=== PATIENT | male | born 1940 | race Caucasian/White ===

== ENCOUNTER 2020-06-15 13:17 | Outpatient (REF) | payer MEDICARE, SELFPAY ==
--- NOTE | 2020-06-15 13:25 | XR_ITS ---
EXAMINATION: XR LUMBOSACRAL SPINE CLINICAL INFORMATION: Fall. COMPARISON: None TECHNIQUE: Three views of the lumbosacral spine. FINDINGS: There is no fracture or subluxation. Vertebral body height and alignment is maintained. Disc spaces are maintained. Small endplate osteophytes with mild facet arthropathy. The sacroiliac joints are symmetric. The sacrum appears intact. The bowel gas pattern is unremarkable.. XR/XR lumbar spine 2-3V IMPRESSION: No fracture or malalignment. Mild degenerative changes in the spine.
== END 2020-06-15 13:18 | disposition home or self-care (01) ==
LOC: HO.HMGCX 13:17
PROVIDERS: PCP Internal Medicine; Visit Provider Internal Medicine
DX: R06.9 Unspecified abnormalities of breathing (principal); W19.XXXA Unspecified fall, initial encounter
CPT/HCPCS: 72100

== ENCOUNTER 2020-06-21 06:08 | Outpatient (REF) | payer MEDICARE, SELFPAY ==
[2020-06-21 07:52] LABS: Anion Gap 14 (12-20); Blood Urea Nitrogen 16 mg/dL (9-16); Calcium 8.8 mg/dL (8.4-10.2); Carbon Dioxide 23 mmol/L (22-29); Chloride 106 mmol/L (96-108); Cholesterol 153 mg/dL; Estimated Glomerular Filt Rate > 60; Glucose Fasting 93 mg/dL (60-99); HDL Cholesterol 57 mg/dL; LDL Cholesterol Calculated 73 mg/dl; Potassium 4.5 mmol/l (3.3-5.1); Sodium 138 mmol/L (135-145); Triglycerides 118 mg/dL
== END 2020-06-21 06:09 | disposition home or self-care (01) ==
LOC: HO.LAB 06:08
PROVIDERS: Visit Provider Internal Medicine
DX: I25.10 Atherosclerotic heart disease of native coronary artery without angina pectoris (principal); E78.9 Disorder of lipoprotein metabolism, unspecified; N40.0 Benign prostatic hyperplasia without lower urinary tract symptoms
CPT/HCPCS: 80048; 80061

== ENCOUNTER 2020-11-29 05:57 | Outpatient (REF) | payer MEDICARE, SELFPAY ==
[2020-11-29 08:42] LABS: Alanine Aminotransferase 17 U/L (0-40); Albumin Level 3.9 g/dL (3.5-5.0); Alkaline Phosphatase 46 U/L (39-117); Anion Gap 10 (12-20); Aspartate Amino Transferase 22 U/L (5-37); Bilirubin Total 0.9 mg/dL (0.0-1.0); Blood Urea Nitrogen 16 mg/dL (9-16); Calcium 9.1 mg/dL (8.4-10.2); Carbon Dioxide 27 mmol/L (22-29); Chloride 107 mmol/L (96-108); Cholesterol 152 mg/dL; Estimated Glomerular Filt Rate > 60; Glucose Fasting 85 mg/dL (60-99); HDL Cholesterol 55 mg/dL; LDL Cholesterol Calculated 75 mg/dl; Potassium 4.9 mmol/L (3.3-5.1); Sodium 139 mmol/L (135-145); Total Protein 6.4 g/dL (6.5-8.0); Triglycerides 110 mg/dL
== END 2020-11-29 05:58 | disposition home or self-care (01) ==
LOC: HO.LAB 05:57
PROVIDERS: PCP Internal Medicine; Visit Provider Internal Medicine
DX: E78.9 Disorder of lipoprotein metabolism, unspecified (principal); I25.10 Atherosclerotic heart disease of native coronary artery without angina pectoris
CPT/HCPCS: 36415; 80053; 80061

== ENCOUNTER → 2021-01-27 07:37 | Outpatient (REF) | payer MEDICARE, SELFPAY ==
--- NOTE | 2021-01-27 07:40 | CA_ITS ---
Transthoracic Echocardiogram Patient (Last, First, Middle): Jaime Lopez M Gender: Male Date of : 1940 Age: 80 Procedure Date: 01/27/2021 Procedure Type: Transthoracic Echocardiogram Location: OP Height: 182.88 cm Weight: 90.72 kg BSA: 2.13 m2 Heart Rate: bpm BP: 110 / 50 mmHg Coater Operator Insulation Board: OFELIA/MANJU Referring MD: Alfredo Collado MD Tankroom Worker: Ciaran Burris MD Symptoms: PVC PAC Study Quality: Fair ECG Rhythm: Sinus with extra beats Conclusions: - 1. Low normal LV systolic function with LVEF of 50-55% with impaired relaxation filling pattern 2. Mild aortic regurgitation 3. Normal RV systolic pressure 4. No pericardial effusion Findings Left Ventricle Normal left ventricular cavity size. There is normal left ventricular wall thickness. The left ventricular systolic function is low normal. The visually estimated ejection fraction is between 50-55%. Spectral Doppler is indicative of an impaired relaxation filling pattern. E/E prime ratio is between 8 and 15 consistent with indeterminate filling pressures. Right Ventricle Normal right ventricular cavity size and systolic function. Atria The left atrium is likely dilated. There is lipomatous hypertrophy of the interatrial septum. There is no evidence of interatrial shunt. The right atrium is normal in size. Aortic Valve There is mild calcification of the aortic valve. There is no aortic valve stenosis. There is mild aortic valve regurgitation. Mitral Valve There is mild anterior and posterior mitral leaflet thickening. There is trace mitral valve regurgitation. There is no mitral valve stenosis. Pulmonic Valve The pulmonic valve was not well visualized. Tricuspid Valve Likely normal tricuspid valve structure and function. There is mild tricuspid valve regurgitation. The right ventricular systolic pressure is normal. The right ventricular systolic pressure is 29 mmHg. Normal right atrial pressure. There is no evidence of pulmonary hypertension. Great Vessels All visible segments of the aorta are normal in size. The pulmonary artery was not well visualized. Venous The inferior vena cava is normal in size and collapses greater than 50% with inspiration. Pericardium/Pleural There is no evidence of pericardial effusion. Prior Study Comparison Changes noted compared to prior study dated: 10/10/2018. LV systolic function is marginally reduced Measurements 2D Linear Measurements IVSd: 0.99 0.6-0.9/0.6-1.0 cm LVIDd: 5.20 3.9-5.3/4.2-5.9 cm LVIDd Index: 2.44 2.4-3.2/2.2-3.1 cm/m2 LVIDs: 3.95 2.0-3.6 cm LVPWd: 1.03 0.7-1.1 cm Ao Root: 3.70 2.1-3.5 cm LA Diam: 3.80 2.7-3.8/3.0-4.0 cm LAIDs Index: 1.78 1.5-2.3 cm/m2 LV Mass: 245.84 67-162/88-224 g LV Mass Index: 115.42 43-95/49-115 g/m2 LVOT Diam: 2.30 3.0+(-)1.3 cm 2D Systolic Function EF 4C: 51.60 >55% EF 2C: 44.00 >55% Mitral Valve MV Pk E: 0.70 MV PK A: 0.51 MV Decel Time: 207.00 E/A: 1.40 E'Lateral: 8.05 E'Medial: 6.20 E/E' Med: 11.40 E/E' Lat: 8.70 PHT: 61.00 MVA PHT: 3.61 Decel [place]: 3.39 Aortic Valve AoV Pk Trent: 1.78 AoV Mn Trent: 1.18 AoV VTI: 0.47 AoV Pk Grad: 13.00 Aov Mn Grad: 6.00 RAISA Cont.VTI: 1.62 AI Pk Trent: 4.14 AI Lea: 1.03 LVOT LVOT Pk Trent: 0.70 LVOT Mn Trent: 0.46 LVOT VTI: 0.18 LVOT Pk Grad: 2.00 LVOT Mn Grad: 1.00 LVOT Diam: 2.30 LVOT Area: 4.15 Diastolic Function MV Pk E: 0.70 MV Pk A: 0.51 E/A: 1.40 E'Medial: 6.20 E/E' Med: 11.40 E' Laterial: 8.05 E/E' Lat: 8.70 Tricuspid Valve TR Pk Trent: 2.55 TR Pk Grad: 26.00 RA Press: 3.00 RVSP: 29.00 Great Vessels Aorta Ao Root-2D: 3.70 2.0-3.7 cm Ao Asc: 3.20 2.1-3.4 cm Ao Arch: 3.10 Pulmonary Valve PV Pk Trent: 0.87 Peak PV Grad: 3.00 Updated in Other Vendor System with Status of Final Ciaran Burris MD electronically signed on 01/28/2021 1:45:37 PM with status of Final
--- NOTE | 2021-01-27 07:41 | ECG_ITS ---
Hook-up date: 2021-01-27 08:46:00 Duration: 24:46:00 Test Indications: PVC PAC Medications: 21412 QRS complexes 45587 Ventricular ectopics which represent 14 % of total QRS comp. 883 Supraventricular ectopics which represent <1 % of total QRS comp. * Paced QRS complexs which represent % of total QRS comp. VENTRICULAR ECTOPY 15121 Isolated 9935 Bigeminal Cycles 274 Couplets 51 Runs 182 Beats in Runs 10 Beats LONGEST at 54 BPM at 08:57:18 2021-01-27 3 Beats FASTEST at 178 BPM at 13:54:39 2021-01-27 SUPRAVENTRICULAR ECTOPY 859 Isolated 12 Couplets 0 Runs 0 Beats in Runs * Beats LONGEST at * BPM at :: -- * Beats FASTEST at * BPM at :: -- HEART RATES 30 MIN at 23:28:56 2021-01-27 65 AVG 116 MAX at 13:39:49 2021-01-27 LONGEST RR 2.5120 secs at 02:18:51 2021-01-28 S-T LEVELS Channel 1 - 128 mm at 08:46:00 2021-01-27 - 128 mm at 08:46:00 2021-01-27 Channel 2 - 128 mm at 08:46:00 2021-01-27 - 128 mm at 08:46:00 2021-01-27 Channel 3 - 128 mm at 02:80:51 -- - 128 mm at 02:80:51 Basic rhythm Normal sinus rhythm Episode of marked sinus bradycardia with pause upto 2.5 seconds during sleep hours Frequent Premature ventricular complexes , 15% of total beats Fastest 3 beat at 178 bpm Occasional Premature atrial complexes Patient did not report any symptoms in the diary Referred By: Alfredo Collado Overread By: KARYN EDWARDS MD
== END ==
LOC: HO.CARD 07:37
PROVIDERS: Visit Provider Internal Medicine
DX: I49.3 Ventricular premature depolarization (principal); I49.1 Atrial premature depolarization
CPT/HCPCS: 93225; 93226; 93306

== ENCOUNTER → 2021-02-23 13:23 | Outpatient (BNVA) | payer MEDICARE, SELFPAY | PROVIDERS: PCP Internal Medicine; Referring Provider Internal Medicine; Visit Provider Internal Medicine | DX: I25.10 Atherosclerotic heart disease of native coronary artery without angina pectoris (principal); I49.3 Ventricular premature depolarization | CPT/HCPCS: 93005; 99212 ==

== ENCOUNTER 2021-04-19 11:33 | Outpatient (REF) | payer MEDICARE, SELFPAY ==
[2021-04-19 13:48] LABS: MANUAL DIFF FLAG NO
[2021-04-19 14:04] LABS: Basophils Absolute Auto 0.1 X10*3/uL (0.0-0.2); Basophils Percent Auto 0.8 % (0-2); Eosinophils Absolute Auto 0.4 X10*3/uL (0.0-0.4); Eosinophils Percent Auto 4.3 % (0-4); Hematocrit 46.2 % (42-52); Hemoglobin 15.3 g/dl (14.0-18.0); Imm Gran Abs Auto 0.06 X10*3/uL (0.00-0.03); Imm Gran Pct Auto 0.7 % (0.0-0.4); Lymphocytes Absolute Auto 2.1 X10*3/uL (1.2-4.9); Lymphocytes Percent Auto 25.4 % (20-40); Mean Corpuscular HGB Conc 33.1 g/dl (31.0-36.0); Mean Corpuscular Hemoglobin 31.5 pg (27.0-33.0); Mean Corpuscular Volume 95.1 fL (80-98); Mean Platelet Volume 12.9 fL (9.4-12.4); Monocytes Absolute Auto 0.6 X10*3/uL (0.1-1.2); Monocytes Percent Auto 7.1 % (2-11); Neutrophils Absolute Auto 5.1 X10*3/uL (2.0-8.3); Neutrophils Percent Auto 61.7 % (45-73); Platelet Count 165 X10*3/uL (160-400); Red Blood Count 4.86 X10*6/uL (4.60-5.80); White Blood Count 8.3 X10*3/uL (4.8-10.8)
[2021-04-19 14:19] LABS: Alanine Aminotransferase 24 U/L (0-40); Albumin Level 3.9 g/dL (3.5-5.0); Alkaline Phosphatase 49 U/L (39-117); Anion Gap 12 (12-20); Aspartate Amino Transferase 26 U/L (5-37); Bilirubin Total 0.9 mg/dL (0.0-1.0); Blood Urea Nitrogen 19 mg/dL (9-16); Calcium 9.4 mg/dL (8.4-10.2); Carbon Dioxide 25 mmol/L (22-29); Chloride 109 mmol/L (96-108); Estimated Glomerular Filt Rate > 60; Glucose Random 77 mg/dL (60-115); Potassium 4.5 mmol/L (3.3-5.1); Sodium 141 mmol/L (135-145); Total Protein 6.7 g/dL (6.5-8.0)
== END 2021-04-19 11:34 | disposition home or self-care (01) ==
LOC: HO.HMGCLDS 11:33
PROVIDERS: PCP Internal Medicine; Visit Provider Internal Medicine
DX: E78.9 Disorder of lipoprotein metabolism, unspecified (principal); I25.10 Atherosclerotic heart disease of native coronary artery without angina pectoris; I35.1 Nonrheumatic aortic (valve) insufficiency
CPT/HCPCS: 36415; 80053; 85025

== ENCOUNTER 2021-10-20 05:52 | Outpatient (REF) | payer MEDICARE, SELFPAY ==
[2021-10-20 09:34] LABS: Alanine Aminotransferase 15 U/L (0-40); Albumin Level 3.8 g/dL (3.5-5.0); Alkaline Phosphatase 51 U/L (39-117); Anion Gap 10 (12-20); Aspartate Amino Transferase 21 U/L (5-37); Blood Urea Nitrogen 16 mg/dL (9-16); Calcium 9.2 mg/dL (8.4-10.2); Carbon Dioxide 29 mmol/L (22-29); Chloride 106 mmol/L (96-108); Cholesterol 149 mg/dL; Estimated Glomerular Filt Rate > 60; Glucose Fasting 93 mg/dL (60-99); HDL Cholesterol 52 mg/dL; LDL Cholesterol Calculated 77 mg/dl; Potassium 4.9 mmol/L (3.3-5.1); Sodium 140 mmol/L (135-145); Total Protein 6.5 g/dL (6.5-8.0); Triglycerides 102 mg/dL
== END 2021-10-20 05:53 | disposition home or self-care (01) ==
LOC: HO.LAB 05:52
PROVIDERS: PCP Internal Medicine; Visit Provider Internal Medicine
DX: I25.10 Atherosclerotic heart disease of native coronary artery without angina pectoris (principal); I35.1 Nonrheumatic aortic (valve) insufficiency; N40.0 Benign prostatic hyperplasia without lower urinary tract symptoms; E78.9 Disorder of lipoprotein metabolism, unspecified
CPT/HCPCS: 36415; 80053; 80061

== ENCOUNTER → 2022-02-13 07:30 | Outpatient (REF) | payer MEDICARE, SELFPAY ==
--- NOTE | 2022-02-13 07:34 | HM_ITS ---
Conclusion: 1. Patient was monitored for total period of 3 days 2. Baseline was normal sinus rhythm with average heart of 63 beats per minute 3. No significant pauses noted but lowest heart rate of 31 beats per minute during sleep hours 4. Total of 1967 PVCs accounting for 0.72% of total beats accounting for occasional PVCs 5. Total of 628 PACs accounting for 0.23% of total burden account for occasional PACs 6. No patient reported events MTDD
--- NOTE | 2022-02-13 07:34 | CA_ITS ---
Transthoracic Echocardiogram Patient (Last, First, Middle): Jaime Lopez M Gender: Male Date of : 1940 Age: 81 Procedure Date: 02/13/2022 Procedure Type: Transthoracic Echocardiogram Location: OP Height: 182.88 cm Weight: 92.99 kg BSA: 2.15 m2 Heart Rate: bpm BP: 116 / 70 mmHg Mammal Control Agent: TO Referring MD: Alfredo Collado MD Electrician Radio: Ciaran Burris MD Symptoms: I49.3 - Ventricular premature depolarization Study Quality: Fair ECG Rhythm: Sinus Conclusions: - 1. Normal LV systolic function with impaired relaxation filling pattern next 2. Mild aortic regurgitation 3. Mildly dilated left atrium 4. Normal RV systolic pressure 5. No pericardial effusion Findings Left Ventricle Normal left ventricular size, thickness, and systolic function. The visually estimated ejection fraction is between 55-60%. Spectral Doppler is indicative of an impaired relaxation filling pattern. E/E prime ratio is between 8 and 15 consistent with indeterminate filling pressures. Right Ventricle Normal right ventricular cavity size and systolic function. Atria The left atrium is mildly dilated. There is no evidence of interatrial shunt. The right atrium is normal in size. Aortic Valve There is moderate calcification of the aortic valve. There is no aortic valve stenosis. There is mild aortic valve regurgitation. Mitral Valve There is mild anterior and posterior mitral leaflet thickening. There is trace mitral valve regurgitation. There is no mitral valve stenosis. Pulmonic Valve The pulmonic valve was not well visualized. Tricuspid Valve Likely normal tricuspid valve structure and function. There is mild tricuspid valve regurgitation. The right ventricular systolic pressure is normal. The right ventricular systolic pressure is 31 mmHg. Normal right atrial pressure. There is no evidence of pulmonary hypertension. Great Vessels All visible segments of the aorta are normal in size. The pulmonary artery was not well visualized. Venous The inferior vena cava is normal in size and collapses greater than 50% with inspiration. Pericardium/Pleural There is no evidence of pericardial effusion. Prior Study Comparison No significant change compared to prior study dated: 01/27/2021. Measurements 2D Linear Measurements IVSd: 1.23 0.6-0.9/0.6-1.0 cm LVIDd: 4.84 3.9-5.3/4.2-5.9 cm LVIDd Index: 2.25 2.4-3.2/2.2-3.1 cm/m2 LVIDs: 3.11 2.0-3.6 cm LVPWd: 1.20 0.7-1.1 cm LA Diam: 4.00 2.7-3.8/3.0-4.0 cm LAIDs Index: 1.86 1.5-2.3 cm/m2 LV Mass: 281.70 67-162/88-224 g LV Mass Index: 131.02 43-95/49-115 g/m2 LVOT Diam: 2.30 3.0+(-)1.3 cm 2D Systolic Function EF 4C: 58.90 >55% EF 2C: 53.40 >55% EF BiP: 56.00 >55% Mitral Valve MV Pk E: 0.42 MV PK A: 0.69 MV Decel Time: 253.00 E/A: 0.60 E'Lateral: 4.35 E'Medial: 5.66 E/E' Med: 7.50 E/E' Lat: 9.70 PHT: 74.00 MVA PHT: 2.97 Decel [place]: 1.68 Aortic Valve AoV Pk Trent: 1.65 AoV Mn Trent: 1.07 AoV VTI: 0.34 AoV Pk Grad: 11.00 Aov Mn Grad: 5.00 RAISA Cont.VTI: 2.72 AI Pk Trent: 4.32 AI [place]: 1.66 LVOT LVOT Pk Trent: 0.78 LVOT Mn Trent: 0.51 LVOT VTI: 0.23 LVOT Pk Grad: 2.00 LVOT Mn Grad: 1.00 LVOT Diam: 2.30 LVOT Area: 4.15 Diastolic Function MV Pk E: 0.42 MV Pk A: 0.69 E/A: 0.60 E'Medial: 5.66 E/E' Med: 7.50 E' Laterial: 4.35 E/E' Lat: 9.70 Right Ventricle TAPSE (mm): 28.70 TVS' Trent: 17.50 Tricuspid Valve TR Pk Trent: 2.65 TR Pk Grad: 28.00 RA Press: 3.00 RVSP: 31.00 Great Vessels Aorta Sinus of Valsalva: 4.41 2.0-3.[address] [place]: 3.27 1.7-3.4 cm Ao Asc: 3.50 2.1-3.4 cm Updated in Other Vendor System with Status of Final Ciaran Burris MD electronically signed on 02/13/2022 12:26:02 PM with status of Final
== END ==
LOC: HO.CARD 07:30
PROVIDERS: PCP Internal Medicine; Visit Provider Internal Medicine
DX: I49.3 Ventricular premature depolarization (principal)
CPT/HCPCS: 93242; 93306

== ENCOUNTER → 2022-02-27 12:16 | Outpatient (BNVA) | payer MEDICARE, SELFPAY | PROVIDERS: PCP Internal Medicine; Referring Provider Internal Medicine; Visit Provider Internal Medicine | DX: I25.10 Atherosclerotic heart disease of native coronary artery without angina pectoris (principal); I49.3 Ventricular premature depolarization; I35.1 Nonrheumatic aortic (valve) insufficiency; Z79.82 Long term (current) use of aspirin; Z79.899 Other long term (current) drug therapy; I25.2 Old myocardial infarction | CPT/HCPCS: 93005; 99212 ==

== ENCOUNTER 2022-04-20 05:51 | Outpatient (REF) | payer MEDICARE, SELFPAY ==
[2022-04-20 08:19] LABS: Alanine Aminotransferase 23 U/L (0-40); Albumin Level 3.9 g/dL (3.5-5.0); Alkaline Phosphatase 52 U/L (39-117); Anion Gap 15 (12-20); Aspartate Amino Transferase 26 U/L (5-37); Blood Urea Nitrogen 15 mg/dL (9-16); Carbon Dioxide 23 mmol/L (22-29); Chloride 107 mmol/L (96-108); Cholesterol 153 mg/dL; Estimated Glomerular Filt Rate > 60; Glucose Fasting 90 mg/dL (60-99); HDL Cholesterol 54 mg/dL; LDL Cholesterol Calculated 79 mg/dl; Potassium 4.5 mmol/L (3.3-5.1); Sodium 140 mmol/L (135-145); Total Protein 6.6 g/dL (6.5-8.0); Triglycerides 103 mg/dL
== END 2022-04-20 05:52 | disposition home or self-care (01) ==
LOC: HO.LAB 05:51
PROVIDERS: PCP Internal Medicine; Visit Provider Internal Medicine
DX: I25.10 Atherosclerotic heart disease of native coronary artery without angina pectoris (principal); I35.1 Nonrheumatic aortic (valve) insufficiency; I49.3 Ventricular premature depolarization; E78.9 Disorder of lipoprotein metabolism, unspecified
CPT/HCPCS: 36415; 80053; 80061

== ENCOUNTER 2022-10-19 06:49 | Outpatient (REF) | payer MEDICARE, SELFPAY ==
[2022-10-19 06:59] LABS: MANUAL DIFF FLAG NO
[2022-10-19 07:49] LABS: Basophils Absolute Auto 0.1 X10*3/uL (0.0-0.2); Eosinophils Absolute Auto 0.2 X10*3/uL (0.0-0.4); Eosinophils Percent Auto 3.3 % (0-4); Hematocrit 47.2 % (42.0-52.0); Hemoglobin 15.5 g/dl (14.0-18.0); Imm Gran Abs Auto 0.04 X10*3/uL (0.00-0.03); Imm Gran Pct Auto 0.5 % (0.0-0.4); Lymphocytes Absolute Auto 1.9 X10*3/uL (1.2-4.9); Lymphocytes Percent Auto 25.2 % (20-40); Mean Corpuscular HGB Conc 32.8 g/dl (31.0-36.0); Mean Corpuscular Hemoglobin 30.8 pg (27.0-33.0); Mean Corpuscular Volume 93.8 fL (80.0-98.0); Monocytes Absolute Auto 0.6 X10*3/uL (0.1-1.2); Monocytes Percent Auto 7.5 % (2-11); Neutrophils Absolute Auto 4.6 x10*3/uL (2.0-8.3); Neutrophils Percent Auto 62.5 % (45-73); Platelet Count 163 X10*3/uL (160-400); Red Blood Count 5.03 X10*6/uL (4.60-5.80); White Blood Count 7.3 X10*3/uL (4.8-10.8)
[2022-10-19 08:24] LABS: Alanine Aminotransferase 17 U/L (0-40); Albumin Level 3.7 g/dL (3.5-5.0); Alkaline Phosphatase 51 U/L (39-117); Anion Gap 14 (12-20); Aspartate Amino Transferase 24 U/L (5-37); Blood Urea Nitrogen 18 mg/dL (9-16); Calcium 9.1 mg/dL (8.4-10.2); Carbon Dioxide 23 mmol/L (22-29); Chloride 110 mmol/L (96-108); Cholesterol 154 mg/dL; Estimated Glomerular Filt Rate > 60; Glucose Fasting 91 mg/dL (60-99); HDL Cholesterol 54 mg/dL; LDL Cholesterol Calculated 80 mg/dl; Potassium 4.8 mmol/L (3.3-5.1); Sodium 142 mmol/L (135-145); Total Protein 6.2 g/dL (6.5-8.0); Triglycerides 102 mg/dL
== END 2022-10-19 06:50 | disposition home or self-care (01) ==
LOC: HO.LAB 06:49
PROVIDERS: PCP Internal Medicine; Visit Provider Internal Medicine
DX: I25.10 Atherosclerotic heart disease of native coronary artery without angina pectoris (principal); I35.1 Nonrheumatic aortic (valve) insufficiency; E78.9 Disorder of lipoprotein metabolism, unspecified
CPT/HCPCS: 36415; 80053; 80061; 85025

== ENCOUNTER 2023-03-21 12:26 | Outpatient (AMB) | payer MEDICARE, SELFPAY ==
--- NOTE | 2023-03-21 12:32 | MHC.OFFVIS ---
Intake Vital Signs 03/21/23 12:33 Height 6 ft Weight 206 lb 5.643 oz BMI 28.0 BP 112/58 L Blood Pressure Location Lt brachial Position Sitting Pulse 43 L Intake Visit Reasons: 1 yr f/up Intake Note: 1 year follow up w/ EKG Loom Changeover Operator Required: No Accompanied by: Self / Same As Patient Allergies metoprolol Allergy (Unknown, Uncoded 03/21/23 12:35) on high dose feels tired Medication List - Last Reconciled 03/21/23 by Alfredo Collado MD aspirin 81 mg PO DAILY metoprolol succinate ER 25 mg PO BEDTIME rosuvastatin 40 mg PO DAILY HPI HPI Comments History of Present Illness Details Jaime returns for follow-up regarding coronary artery disease. To recall, he has a history of coronary intervention to proximal ramus in [address] myocardial infarction. Overall, he is doing good. No specific complaints like angina or shortness of breath. He has exercise regularly. Also swims for half an hour or so without any issues. [facility] Medical History Atherosclerotic cardiovascular disease Benign prostatic hyperplasia Coronary artery disease Excessive cerumen in both ear canals Fall Lipid disorder Moderate aortic valve regurgitation PVC (premature ventricular contraction) Swelling Surgical History History of hemorrhoidectomy History of surgery Family History Father Leukemia Depression Mother Dementia Maternal Grandfather No problems noted. Maternal Grandmother No problems noted. Paternal Grandfather No problems noted. Paternal Grandmother No problems noted. Brother No problems noted. Son No problems noted. Son No problems noted. Son No problems noted. Daughter No problems noted. Other Mental health disorder Social History Housing: House Alcohol intake: never Patient Tobacco Use Status: Never used Tobacco e-Cigarette/Vaping Use: Never Used service: Yes Current occupational status: retired Cognitive needs: No Hearing needs: No Vision needs: Yes Review of Systems Const Denies weakness ENT Denies dizziness Card Denies chest pain, Denies chest pain with activity, Denies syncope, Denies rapid heart rate, Denies pedal edema, Denies edema, Denies leg edema, Denies lightheadedness, Denies palpitations, Denies dyspnea, Denies dyspnea on exertion and Denies orthopnea Resp Denies cough, Denies dyspnea and Denies dyspnea on exertion GI Denies hematochezia and Denies change in stool character Musc Denies abnormal gait, Denies muscle cramps, Denies muscle weakness, Denies numbness, Denies radiating pain into limb and Denies tingling Neuro Denies abnormal gait, Denies dizziness, Denies syncope, Denies numbness, Denies tingling and Denies weakness Endo Denies palpitations Physical Exam Vital Signs: Last Vital Signs Pulse 43 L 03/21/23 12:33 BP 112/58 L 03/21/23 12:33 BMI result Body Mass Index 28.0 Const General: comfortable and no acute distress Orientation/consciousness: patient oriented x3 HEENT Other: Unremarkable Head: Yes normal to inspection Neck Neck: Yes normal visual inspection Chest Chest palpation & inspection: normal inspection of the chest Resp Auscultation: clear to auscultation bilaterally Cardio Palpation: normal PMI Heart sounds: S1 normal heart sound present, S2 normal heart sound present, no gallops, no murmurs and no rubs GI Palpation (GI): Soft to palpation Back/Spine/Pelvis Other: unremarkable Skin General skin exam: no rashes or lesions noted Neuro General: patient oriented x3 Extrem General: Yes normal to inspection Psych Mental Status: mental status grossly normal Office Procedures EKG Details: EKG with sinus bradycardia, 43/Min; sinus arrhythmia. Nonspecific ST-T changes. 47141-[id number], Complete Assessment & Plan Assessment & Plan (1) Atherosclerotic cardiovascular disease: Code(s): I25.10 - Atherosclerotic heart disease of [place] coronary artery without angina pectoris Plan: Remote coronary intervention, but no symptoms at this time. As he is fairly active pursuing exercising every day, we will reassess ischemia burden with perfusion imaging. Will also look for chronotropic competence due to baseline bradycardia. (2) PVC (premature ventricular contraction): Code(s): I49.3 - Ventricular premature depolarization Plan: In the last Holter, minimal burden. In the previous study, as much as 15% burden. He remains on a small dose of beta-blockers. (3) Nonrheumatic aortic valve regurgitation: Code(s): I35.1 - Nonrheumatic aortic (valve) insufficiency Plan: Echocardiogram with mild aortic regurgitation. Not hemodynamically significant. No specific implications at this time. Orders: Orders CA stress test Today I25.10 - Atherosclerotic heart disease of [place] coronary artery without angina pectoris NM cardiolite stress test Today I25.10 - Atherosclerotic heart disease of [place] coronary artery without angina pectoris, R07.2 - Precordial pain Coding Level of Care Code Est Pt Level 3 (37313) Diagnoses Atherosclerotic cardiovascular disease I25.10 PVC (premature ventricular contraction) I49.3 Nonrheumatic aortic valve regurgitation I35.1 CPT Codes EKG - CPT: 59472-[id number], Complete ([id number])
[2023-03-21 12:33] VITALS: BP 112/58; PULSE 43; BMI 28.0
== END 2023-03-21 12:48 | disposition home or self-care (01) ==
PROVIDERS: PCP Internal Medicine; Referring Provider Internal Medicine; Visit Provider Internal Medicine
DX: I25.10 Atherosclerotic heart disease of native coronary artery without angina pectoris (principal); I49.3 Ventricular premature depolarization; I35.1 Nonrheumatic aortic (valve) insufficiency
CPT/HCPCS: 93010; 99213

== ENCOUNTER → 2023-03-21 12:26 | Outpatient (BNVA) | payer MEDICARE, SELFPAY | PROVIDERS: PCP Internal Medicine; Referring Provider Internal Medicine; Visit Provider Internal Medicine | DX: I25.10 Atherosclerotic heart disease of native coronary artery without angina pectoris (principal); I49.3 Ventricular premature depolarization; I35.1 Nonrheumatic aortic (valve) insufficiency | CPT/HCPCS: 93005; 99212 ==

== ENCOUNTER → 2023-04-16 08:07 | Outpatient (REF) | payer MEDICARE, SELFPAY ==
--- NOTE | ~2023-04-16 | NM_ITS ---
EXERCISE MYOCARDIAL PERFUSION STUDY INDICATION: Coronary disease, assess for ischemia TECHNIQUE: The patient was brought in for an exercise perfusion study on 04/16/2023. Patient performed exercise as per Paul protocol and was injected 30 mCi of sestamibi once target heart rate was achieved. Images were obtained using the SPECT gamma camera interlaced with the gating device. Images were obtained in supine position. Resting perfusion study was performed on 04/18/2023. Patient was administered 30 mCi of sestamibi intravenously at rest. Images were then obtained in supine position. Images were processed with the software and compared side to side in short axis, horizontal long axis and vertical long axis views. Total DLP 95mGy-cm. FINDINGS: Raw images were reviewed. The stress perfusion study showed no significant perfusion defects. Both uncorrected as well as CT attenuation corrected images were reviewed. The gated study shows normal LV systolic function with calculated LVEF of 60%. LV cavity is normal in size. The gated study shows normal wall thickening and contraction of segments. Resting study shows no significant perfusion defects. Gating at rest reveals normal wall motion with ejection fraction at 49%. The findings are consistent with no clear reversible or fixed perfusion defects. AL/AL cardiolite stress test IMPRESSION: 1. Myocardial perfusion imaging study shows normal myocardial perfusion. No clear evidence of any ischemia or infarction. 2. Gated LVEF is 60% during stress and 49% during rest. Correlate with echocardiogram. 3. Transient ischemic dilatation not present. EKG component of the test reported separately.
--- NOTE | 2023-04-16 08:09 | CA_ITS ---
Acquisition Time: 2023-04-16 08:42:37 Total Exercise Time: 00:05:59 Test Indications: CAD, PVC'S Medications: SEE H Protocol: BEN Max HR: 125 BPM 89% of Pred: 139 BPM Max BP: 154/082 mmHG Max Work Load: 7.0 METS Exercise stress test exercise achieving 88% MPHR, without anginal symptoms, with frequent isolated PVCs and one ventriuclar cuplet, with normotensive response to exercise, with downsloping V6 Nuclear images pending. Test reviewed with Dr. Ba. Referred By: Ibrahima Collado Overread By: IBRAHIMA COLLADO
== END ==
LOC: HO.CARD 08:07
PROVIDERS: PCP Internal Medicine; Visit Provider Internal Medicine
DX: R07.2 Precordial pain (principal); I25.10 Atherosclerotic heart disease of native coronary artery without angina pectoris
CPT/HCPCS: 78452; 93017; A9500

== ENCOUNTER → 2023-04-16 08:09 | Outpatient (BNV) | payer MEDICARE, SELFPAY | PROVIDERS: PCP Internal Medicine; Visit Provider Internal Medicine | DX: I25.10 Atherosclerotic heart disease of native coronary artery without angina pectoris (principal) | CPT/HCPCS: 78452; 93016; 93018 ==

== ENCOUNTER 2023-07-17 08:16 | Outpatient (AMB) | payer MEDICARE, SELFPAY ==
[2023-07-17 08:35] VITALS: BP 120/68; PULSE 40; O2SAT 97; BMI 28.4
--- NOTE | 2023-07-17 08:35 | MHC.PC.OV ---
Vital Signs 07/17/23 08:35 Height 6 ft Weight 209 lb 2 oz BMI 28.4 BP 120/68 Blood Pressure Location Rt brachial Position Sitting Pulse 40 L Pulse Source Pulse Oximeter Pulse Oximetry (%) 97 Oxygen Delivery Method Room Air Intake Visit Reasons: 9m follow up, lipids Allergies metoprolol Allergy (Unknown, Uncoded 07/17/23 08:37) on high dose feels tired Medication List - Last Reviewed 07/17/23 by Eliza Murray CMA aspirin 81 mg PO DAILY metoprolol succinate ER 25 mg PO BEDTIME rosuvastatin 40 mg PO DAILY Tobacco use date assessed: 07/17/23 Fall risk assessment: No Falls in past year Last assessed Fall Risk: 07/17/23 Dental Screening Dental Screen Date: 07/17/23 Did you have a dental visit in the last 12 months?: Yes Did you have a dental problem in the last 6 months where you did not have access to dental care?: No Was dental information given to patient?: Patient has dentist HPI 9m follow up, lipids HPI Details Patient is 83-year-old male came in today for his regular follow-up appointment Patient have coronary artery disease, he is seeing Dr. Collado [facility] all his medications are through them Patient would still like to come in here every 4 month because he gets wax buildup I see that he has not had labs done since September of this year, I have placed a new set of order for him to be done fasting Both ears were irrigated today with good result Patient is to follow-up in 4 months for ear irrigation [facility] Medical History PVC (premature ventricular contraction) Atherosclerotic cardiovascular disease Swelling Fall Excessive cerumen in both ear canals Benign prostatic hyperplasia Lipid disorder Moderate aortic valve regurgitation Coronary artery disease Surgical History History of surgery History of hemorrhoidectomy Family History Father Leukemia Depression Mother Dementia Maternal Grandfather No problems noted. Maternal Grandmother No problems noted. Paternal Grandfather No problems noted. Paternal Grandmother No problems noted. Brother No problems noted. Son No problems noted. Son No problems noted. Son No problems noted. Daughter No problems noted. Other Mental health disorder Social History Housing: House Alcohol intake: never Patient Tobacco Use Status: Never used Tobacco e-Cigarette/Vaping Use: Never Used service: Yes Current occupational status: retired Cognitive needs: No Hearing needs: No Vision needs: Yes Questionnaire PHQ-9 Over the last 2 weeks, how often have you been bothered by any of the following problems? 1. Little interest or pleasure in doing things: not at all 2. Feeling down, depressed, or hopeless: not at all 3. Trouble falling or staying asleep, or sleeping too much: not at all 4. Feeling tired or having little energy: not at all 5. Poor appetite or overeating: not at all 6. Feeling bad about yourself - or that you are a failure or have let yourself or your family down: not at all 7. Trouble concentrating on things, such as reading the newspaper or watching television: not at all 8. Moving or speaking so slowly that other people could have noticed. Or the opposite - being so fidgety or restless that you have been moving around a lot more than usual: not at all 9. Thoughts that you would be better off or of hurting yourself in some way: not at all Total score: 0 Depression Screening Interpretation: Negative Depression Screening Done: Yes 47714 - PHQ-9 Billing: Yes Source: Developed by Drs. Jared Brown, Genia Gibson, Spenser Hernandez and colleagues, with an educational genny from [employer]. Thrive Questionnaire Date Thrive assessed: 10/18/21 COSME-7 AMB Questionnaire COSME-7 Date COSME - 7 assessed: 07/17/23 Feeling nervous, anxious, or on edge: 0 = Not at all Not being able to stop or control worryin = Not at all Worrying too much about different things: 0 = Not at all Trouble relaxin = Not at all Being so restless that it is hard to sit still: 0 = Not at all Becoming easily annoyed or irritable: 0 = Not at all Feeling afraid as if something awful might happen: 0 = Not at all Total COSME-7 score (0-4 normal; 5-9 mild; 10-14 moderate; 15-21 severe): 0 Source: Developed by Drs. Jared Brown, Genia Gibson, Spenser Hernandez and colleagues, with an educational genny from [employer]. COSME-7 Assessment Billing COSME-7 Assessment Tool: COSME-7 Assessment 15116 Review of Systems Const Denies chills and Denies fever(s) ENT Denies epistaxis and Denies nasal discharge Card Denies chest pain Resp Denies chest congestion, Denies cough and Denies hemoptysis GI Denies diarrhea and Denies nausea Skin/Breast Denies rash Neuro Reports no additional complaints Psych Reports no additional complaints Endo Reports no additional complaints Physical exam (Primary Care) Vital Signs: Last Vital Signs Pulse 40 L 07/17/23 08:35 BP 120/68 07/17/23 08:35 Pulse Ox 97 07/17/23 08:35 Oxygen Delivery Method Room Air 07/17/23 08:35 BMI result Body Mass Index 28.4 Tobacco/Smoking Status: Tobacco use Status Tobacco use date assessed 07/17/23 07/17/23 08:42 Patient Tobacco Use Status Never used Tobacco 07/17/23 08:35 e-Cigarette/Vaping Use Never Used 07/17/23 08:35 PHQ-9: PHQ-9 Score PHQ-9: Total score 0 07/17/23 10:56 Depression Screening Interpretation: Negative Thrive Assessment: Date of Thrive Assessment Date Thrive assessed 10/18/21 07/17/23 08:35 Const General: cooperative, comfortable and no acute distress Orientation/consciousness: patient oriented x3 HENKS Head: Yes normocephalic Eyes General: appearance normal, both eyes and all related structures Neck Neck: Yes supple Resp Effort & Inspection: normal respiratory effort, no cough and no stridor Cardio Rhythm: regular rhythm Heart sounds: S1 normal heart sound present and S2 normal heart sound present Skin General skin exam: turgor normal Neuro General: patient oriented x3, tone normal and moves all extremities Extrem Right lower extremity: no edema Left lower extremity: no edema Office Procedures Cerumen Removal From which ear canal was the cerumen removed: bilateral Removal: irrigation Notes: patient tolerated procedure well, no complications and ear canal clear [id number] Irrigation/Lavage Assessment and Plan Assessment & Plan (1) Coronary artery disease: Code(s): I25.10 - Atherosclerotic heart disease of [place] coronary artery without angina pectoris Qualifiers: Coronary Disease-Associated Artery/Lesion type: [place] artery [place] vs. transplanted heart: [place] heart Associated angina: without angina Qualified Code(s): I25.10 - Atherosclerotic heart disease of [place] coronary artery without angina pectoris (2) Moderate aortic valve regurgitation: Code(s): I35.1 - Nonrheumatic aortic (valve) insufficiency (3) Lipid disorder: Code(s): E78.9 - Disorder of lipoprotein metabolism, unspecified (4) Excessive cerumen in both ear canals: Code(s): H61.23 - Impacted cerumen, bilateral Plan Patient is 83-year-old male came in today for his regular follow-up appointment Patient have coronary artery disease, he is seeing Dr. Collado [facility] all his medications are through them Patient would still like to come in here every 4 month because he gets wax buildup I see that he has not had labs done since September of this year, I have placed a new set of order for him to be done fasting Both ears were irrigated today with good result Patient is to follow-up in 4 months for ear irrigation Orders: Orders Complete Blood Count Auto Diff Today E78.9 - Disorder of lipoprotein metabolism, unspecified, I25.10 - Atherosclerotic heart disease of [place] coronary artery without angina pectoris, I35.1 - Nonrheumatic aortic (valve) insufficiency Comprehensive [place]. Panel Fast Today E78.9 - Disorder of lipoprotein metabolism, unspecified, I25.10 - Atherosclerotic heart disease of [place] coronary artery without angina pectoris, I35.1 - Nonrheumatic aortic (valve) insufficiency Lipid Panel Today E78.9 - Disorder of lipoprotein metabolism, unspecified, I25.10 - Atherosclerotic heart disease of [place] coronary artery without angina pectoris, I35.1 - Nonrheumatic aortic (valve) insufficiency Coding Level of Care Code Est Pt Level 3 (66119) Diagnoses Coronary artery disease involving [place] coronary artery of [place] heart without angina pectoris I25.10 Coronary Disease-Associated Artery/Lesion type: [place] artery [place] vs. transplanted heart: [place] heart Associated angina: without angina Moderate aortic valve regurgitation I35.1 Lipid disorder E78.9 Excessive cerumen in both ear canals H61.23 CPT Codes Office Procedure - CPT: 24267-Shc Irrigation/Lavage ([id number]) Additional Codes COSME-7 Assessment Billing - COSME-7 Assessment Tool: COSME-7 Assessment 72121 ([id number])
== END 2023-07-17 10:29 | disposition home or self-care (01) ==
PROVIDERS: Visit Provider Internal Medicine
DX: I25.10 Atherosclerotic heart disease of native coronary artery without angina pectoris (principal); I35.1 Nonrheumatic aortic (valve) insufficiency; E78.9 Disorder of lipoprotein metabolism, unspecified; H61.23 Impacted cerumen, bilateral
CPT/HCPCS: 69209; 99213

== ENCOUNTER 2023-11-12 05:59 | Outpatient (REF) | payer MEDICARE, SELFPAY ==
[2023-11-12 06:10] LABS: MANUAL DIFF FLAG NO
[2023-11-12 07:32] LABS: Basophils Absolute Auto 0.1 X10*3/uL (0.0-0.2); Basophils Percent Auto 0.7 % (0-2); Eosinophils Absolute Auto 0.2 X10*3/uL (0.0-0.4); Eosinophils Percent Auto 2.6 % (0-4); Hematocrit 45.1 % (42.0-52.0); Hemoglobin 15.1 g/dl (14.0-18.0); Imm Gran Abs Auto 0.04 X10*3/uL (0.00-0.03); Imm Gran Pct Auto 0.6 % (0.0-0.4); Lymphocytes Absolute Auto 1.7 X10*3/uL (1.2-4.9); Lymphocytes Percent Auto 24.6 % (20-40); Mean Corpuscular HGB Conc 33.5 g/dl (31.0-36.0); Mean Corpuscular Hemoglobin 31.4 pg (27.0-33.0); Mean Corpuscular Volume 93.8 fL (80.0-98.0); Mean Platelet Volume 11.9 fL (9.4-12.4); Monocytes Absolute Auto 0.4 X10*3/uL (0.1-1.2); Monocytes Percent Auto 5.9 % (2-11); Neutrophils Absolute Auto 4.5 x10*3/uL (2.0-8.3); Neutrophils Percent Auto 65.6 % (45-73); Platelet Count 167 X10*3/uL (160-400); Red Blood Count 4.81 X10*6/uL (4.60-5.80); White Blood Count 6.8 X10*3/uL (4.8-10.8)
[2023-11-12 07:48] LABS: Alanine Aminotransferase 21 U/L (0-40); Albumin Level 3.8 g/dL (3.5-5.0); Alkaline Phosphatase 46 U/L (39-117); Anion Gap 11 (12-20); Aspartate Amino Transferase 25 U/L (5-37); Bilirubin Total 0.9 mg/dL (0.0-1.0); Blood Urea Nitrogen 21 mg/dL (9-16); Calcium 9.3 mg/dL (8.4-10.2); Carbon Dioxide 24 mmol/L (22-29); Chloride 110 mmol/L (96-108); Cholesterol 148 mg/dL (<200); Estimated Glomerular Filt Rate > 60; Glucose Fasting 86 mg/dL (60-99); HDL Cholesterol 56 mg/dL (>40); LDL Cholesterol Calculated 77 mg/dL (<100); Potassium 4.3 mmol/L (3.3-5.1); Sodium 141 mmol/L (135-145); Total Protein 6.6 g/dL (6.5-8.0); Triglycerides 78 mg/dL (<150)
== END 2023-11-12 06:00 | disposition home or self-care (01) ==
LOC: HO.LAB 05:59
PROVIDERS: PCP Internal Medicine; Visit Provider Internal Medicine
DX: I25.10 Atherosclerotic heart disease of native coronary artery without angina pectoris (principal); I35.1 Nonrheumatic aortic (valve) insufficiency; E78.9 Disorder of lipoprotein metabolism, unspecified
CPT/HCPCS: 36415; 80053; 80061; 85025

== ENCOUNTER 2023-11-20 08:37 | Outpatient (AMB) | payer MEDICARE, SELFPAY ==
[2023-11-20 08:41] VITALS: BP 112/60; PULSE 65; O2SAT 98; BMI 28.2
--- NOTE | 2023-11-20 08:41 | MHC.PC.OV ---
Vital Signs 11/20/23 08:41 Height 6 ft Weight 208 lb 4 oz BMI 28.2 BP 112/60 Blood Pressure Location Rt brachial Position Sitting Pulse 65 Pulse Source Pulse Oximeter Pulse Oximetry (%) 98 Oxygen Delivery Method Room Air Intake Visit Reasons: 4 month follow up Allergies metoprolol Allergy (Unknown, Uncoded 07/17/23 08:37) on high dose feels tired Medication List - Last Reconciled 11/20/23 by Jb Vicente MD aspirin 81 mg PO DAILY metoprolol succinate ER 25 mg PO BEDTIME rosuvastatin 40 mg PO DAILY Tobacco use date assessed: 11/20/23 Fall risk assessment: No Falls in past year Last assessed Fall Risk: 11/20/23 Dental Screening Dental Screen Date: 11/20/23 Did you have a dental visit in the last 12 months?: Yes Did you have a dental problem in the last 6 months where you did not have access to dental care?: No Was dental information given to patient?: Patient has dentist HPI 4 month follow up HPI Details Paient is 83-year-old male came in today for his regular follow-up appointment Patient have coronary artery disease, he is seeing Dr. Collado [facility] all his medications are through them Patient comes in every 4 months for ear irrigation He is active, swims every day On examination today he has excessive fax in his left ear only Which was removed with the help of ear loop Patient tolerated procedure well Blood pressure is stable Labs done recently reviewed Follow-up 4 months [facility] Medical History PVC (premature ventricular contraction) Atherosclerotic cardiovascular disease Swelling Fall Excessive cerumen in both ear canals Benign prostatic hyperplasia Lipid disorder Moderate aortic valve regurgitation Coronary artery disease Surgical History History of surgery History of hemorrhoidectomy Family History Father Leukemia Depression Mother Dementia Maternal Grandfather No problems noted. Maternal Grandmother No problems noted. Paternal Grandfather No problems noted. Paternal Grandmother No problems noted. Brother No problems noted. Son No problems noted. Son No problems noted. Son No problems noted. Daughter No problems noted. Other Mental health disorder Social History Housing: House Alcohol intake: never Patient Tobacco Use Status: Never used Tobacco e-Cigarette/Vaping Use: Never Used service: Yes Current occupational status: retired Cognitive needs: No Hearing needs: No Vision needs: Yes Questionnaire PHQ-9 Over the last 2 weeks, how often have you been bothered by any of the following problems? 1. Little interest or pleasure in doing things: not at all 2. Feeling down, depressed, or hopeless: not at all 3. Trouble falling or staying asleep, or sleeping too much: not at all 4. Feeling tired or having little energy: not at all 5. Poor appetite or overeating: not at all 6. Feeling bad about yourself - or that you are a failure or have let yourself or your family down: not at all 7. Trouble concentrating on things, such as reading the newspaper or watching television: not at all 8. Moving or speaking so slowly that other people could have noticed. Or the opposite - being so fidgety or restless that you have been moving around a lot more than usual: not at all 9. Thoughts that you would be better off or of hurting yourself in some way: not at all Total score: 0 Depression Screening Interpretation: Negative Depression Screening Done: Yes 04572 - PHQ-9 Billing: Yes Source: Developed by Drs. Jared Brown, Genia Gibson, Spenser Hernandez and colleagues, with an educational genny from [employer]. Thrive Questionnaire Date Thrive assessed: 11/20/23 I am a: Patient What is your living situation today?: I have a steady place to live Within the past 12 months, did the food you bought not last and you didn't have the money to get more?: Never true Within the past 12 months, did you worry whether your food would run out before you got money to buy more?: Never true Do you have trouble paying for medicines?: No Do you have trouble getting transportation to medical appointments?: No Do you have trouble paying your heating and electricity bill?: No Do you have trouble taking care of your child, family member or friend?: No Do you have trouble with day-to-day activities such as bathing, preparing meals, shopping, managing finances, etc.?: No Are you currently unemployed and looking for a job?: No Are you interested in more education?: No Please select the resources that you would like help with: None Currently or been in a relationship where the following occur: no concerns reported THRIVE Score: 0 AUDIT C Alcohol Use Questionnaire (AUDIT-C) 1. How often do you have a drink containing alcohol?: Never 3. How often do you have six or more drinks on one occasion?: Never Total Score: 0 Score Reviewed/Action Taken: Yes COSME-7 AMB Questionnaire COSME-7 Date COSME - 7 assessed: 11/20/23 Feeling nervous, anxious, or on edge: 0 = Not at all Not being able to stop or control worryin = Not at all Worrying too much about different things: 0 = Not at all Trouble relaxin = Not at all Being so restless that it is hard to sit still: 0 = Not at all Becoming easily annoyed or irritable: 0 = Not at all Feeling afraid as if something awful might happen: 0 = Not at all Total COSME-7 score (0-4 normal; 5-9 mild; 10-14 moderate; 15-21 severe): 0 Source: Developed by Drs. Jared Brown, Genia Gibson, Spenser Hernandez and colleagues, with an educational genny from [employer]. COSME-7 Assessment Billing COSME-7 Assessment Tool: COSME-7 Assessment 20964 Review of Systems Const Denies chills and Denies fever(s) ENT Denies epistaxis and Denies nasal discharge Card Denies chest pain Resp Denies chest congestion, Denies cough and Denies hemoptysis GI Denies diarrhea and Denies nausea Skin/Breast Denies rash Neuro Reports no additional complaints Psych Reports no additional complaints Endo Reports no additional complaints Physical exam (Primary Care) Vital Signs: Last Vital Signs Pulse 65 11/20/23 08:41 BP 112/60 11/20/23 08:41 Pulse Ox 98 11/20/23 08:41 Oxygen Delivery Method Room Air 11/20/23 08:41 BMI result Body Mass Index 28.2 Tobacco/Smoking Status: Tobacco use Status Tobacco use date assessed 11/20/23 11/20/23 08:44 Patient Tobacco Use Status Never used Tobacco 11/20/23 08:44 e-Cigarette/Vaping Use Never Used 11/20/23 08:44 PHQ-9: PHQ-9 Score PHQ-9: Total score 0 11/20/23 08:56 Depression Screening Interpretation: Negative Thrive Assessment: Date of Thrive Assessment Date Thrive assessed 11/20/23 11/20/23 08:56 Currently or been in a relationship where the following occur: no concerns reported Const General: cooperative, comfortable and no acute distress Orientation/consciousness: patient oriented x3 HENMT Other: Left ear with excessive cerumen Head: Yes normocephalic Eyes General: appearance normal, both eyes and all related structures Neck Neck: Yes supple Resp Effort & Inspection: normal respiratory effort, no cough and no stridor Cardio Rhythm: regular rhythm Heart sounds: S1 normal heart sound present and S2 normal heart sound present Skin General skin exam: turgor normal Neuro General: patient oriented x3, tone normal and moves all extremities Extrem Right lower extremity: no edema Left lower extremity: no edema Office Procedures Cerumen Removal From which ear canal was the cerumen removed: left Removal: cerumen loop/spoon Notes: patient tolerated procedure well, no complications and ear canal clear [id number] Wax Removal by Spoon/Curette Assessment and Plan Assessment & Plan (1) Excessive cerumen in left ear canal: Code(s): H61.22 - Impacted cerumen, left ear (2) Coronary artery disease: Code(s): I25.10 - Atherosclerotic heart disease of [place] coronary artery without angina pectoris Qualifiers: Coronary Disease-Associated Artery/Lesion type: [place] artery [place] vs. transplanted heart: [place] heart Associated angina: without angina Qualified Code(s): I25.10 - Atherosclerotic heart disease of [place] coronary artery without angina pectoris (3) Moderate aortic valve regurgitation: Code(s): I35.1 - Nonrheumatic aortic (valve) insufficiency (4) Lipid disorder: Code(s): E78.9 - Disorder of lipoprotein metabolism, unspecified Plan Paient is 83-year-old male came in today for his regular follow-up appointment Patient have coronary artery disease, he is seeing Dr. Collado [facility] all his medications are through them Patient comes in every 4 months for ear irrigation He is active, swims every day On examination today he has excessive fax in his left ear only Which was removed with the help of ear loop Patient tolerated procedure well Blood pressure is stable Labs done recently reviewed Follow-up 4 months Coding Level of Care Code Est Pt Level 3 (50252) Diagnoses Excessive cerumen in left ear canal H61.22 Coronary artery disease involving [place] coronary artery of [place] heart without angina pectoris I25.10 Coronary Disease-Associated Artery/Lesion type: [place] artery [place] vs. transplanted heart: [place] heart Associated angina: without angina Moderate aortic valve regurgitation I35.1 Lipid disorder E78.9 CPT Codes Office Procedure - CPT: 93900-Fnj Wax Removal by Spoon/Curette ([id number]) Additional Codes COSME-7 Assessment Billing - COSME-7 Assessment Tool: COSME-7 Assessment 07268 ([id number])
== END 2023-11-20 08:55 | disposition home or self-care (01) ==
PROVIDERS: PCP Internal Medicine; Visit Provider Internal Medicine
DX: H61.22 Impacted cerumen, left ear (principal); I25.10 Atherosclerotic heart disease of native coronary artery without angina pectoris; I35.1 Nonrheumatic aortic (valve) insufficiency; E78.9 Disorder of lipoprotein metabolism, unspecified
CPT/HCPCS: 69210; 99213

== ENCOUNTER 2024-03-14 08:06 | Outpatient (AMB) | payer MEDICARE, SELFPAY ==
[2024-03-14 08:10] VITALS: BP 132/78; PULSE 75; O2SAT 96; BMI 27.9
--- NOTE | 2024-03-14 08:10 | A.OFFPC_ITS ---
Vital Signs 03/14/24 08:10 Height 6 ft Weight 206 lb BMI 27.9 BP 132/78 Blood Pressure Location Lt brachial Position Sitting Pulse 75 Pulse Source Pulse Oximeter Pulse Oximetry (%) 96 Oxygen Delivery Method Room Air Intake Visit Reasons: 8 month appt Allergies metoprolol Allergy (Unknown, Uncoded 07/17/23 08:37) on high dose feels tired Medication List - Last Reconciled 03/14/24 by Jb Vicente MD aspirin 81 mg PO DAILY metoprolol succinate ER 25 mg PO BEDTIME rosuvastatin 40 mg PO DAILY Tobacco use date assessed: 03/14/24 Fall risk assessment: No Falls in past year Last assessed Fall Risk: 03/14/24 Dental Screening Dental Screen Date: 03/14/24 Did you have a dental visit in the last 12 months?: Yes Did you have a dental problem in the last 6 months where you did not have access to dental care?: No Was dental information given to patient?: Patient has dentist HPI 8 month appt HPI Details Patient is 83-year-old male came in today for his regular follow-up appointment Patient has developed rash front of his chest for the past 2 months which is itchy He thought he had shingles, patient has had Shingrix vaccine 2018 On examination it seems like tinea corporis, patient has similar rash in groin area off and on I have sent Lotrisone cream, patient is to use that at night for 2 weeks and get back to me to update me. Patient have coronary artery disease, he is seeing Dr. Collado [facility] all his medications are through them Appointment coming up of this month Patient comes in every 4 months for ear irrigation He is active, swims every day Ears were irrigated, patient forgot to use Debrox to soften the wax Patient tolerated procedure well Blood pressure is stable Follow-up 4 months [facility] Medical History PVC (premature ventricular contraction) Atherosclerotic cardiovascular disease Swelling Fall Excessive cerumen in both ear canals Benign prostatic hyperplasia Lipid disorder Moderate aortic valve regurgitation Coronary artery disease Surgical History History of surgery History of hemorrhoidectomy Family History Father Leukemia Depression Mother Dementia Maternal Grandfather No problems noted. Maternal Grandmother No problems noted. Paternal Grandfather No problems noted. Paternal Grandmother No problems noted. Brother No problems noted. Son No problems noted. Son No problems noted. Son No problems noted. Daughter No problems noted. Other Mental health disorder Social History Housing: House Alcohol intake: never Patient Tobacco Use Status: Never used Tobacco e-Cigarette/Vaping Use: Never Used service: Yes Current occupational status: retired Cognitive needs: No Hearing needs: No Vision needs: Yes Questionnaire PHQ-9 Over the last 2 weeks, how often have you been bothered by any of the following problems? 1. Little interest or pleasure in doing things: not at all 2. Feeling down, depressed, or hopeless: not at all 3. Trouble falling or staying asleep, or sleeping too much: not at all 4. Feeling tired or having little energy: not at all 5. Poor appetite or overeating: not at all 6. Feeling bad about yourself - or that you are a failure or have let yourself or your family down: not at all 7. Trouble concentrating on things, such as reading the newspaper or watching television: not at all 8. Moving or speaking so slowly that other people could have noticed. Or the opposite - being so fidgety or restless that you have been moving around a lot more than usual: not at all 9. Thoughts that you would be better off or of hurting yourself in some way: not at all Total score: 0 Depression Screening Interpretation: Negative Depression Screening Done: Yes [id number] - PHQ-9 Billing: Yes Source: Developed by Drs. Jared Brown, Genia Gibson, Spenser Hernandez and colleagues, with an educational genny from [employer]. Thrive Questionnaire Date Thrive assessed: 03/14/24 I am a: Patient What is your living situation today?: I have a steady place to live Within the past 12 months, did the food you bought not last and you didn't have the money to get more?: Never true Within the past 12 months, did you worry whether your food would run out before you got money to buy more?: Never true Do you have trouble paying for medicines?: No Do you have trouble getting transportation to medical appointments?: No Do you have trouble paying your heating and electricity bill?: No Do you have trouble taking care of your child, family member or friend?: No Do you have trouble with day-to-day activities such as bathing, preparing meals, shopping, managing finances, etc.?: No Are you currently unemployed and looking for a job?: No Are you interested in more education?: No Please select the resources that you would like help with: Utilities Currently or been in a relationship where the following occur: No concerns reported THRIVE Score: 0 AUDIT C Alcohol Use Questionnaire (AUDIT-C) 1. How often do you have a drink containing alcohol?: Never 3. How often do you have six or more drinks on one occasion?: Never Total Score: 0 Score Reviewed/Action Taken: Yes COSME-7 AMB Questionnaire COSME-7 Date COSME - 7 assessed: 03/14/24 Feeling nervous, anxious, or on edge: 0 = Not at all Not being able to stop or control worryin = Not at all Worrying too much about different things: 0 = Not at all Trouble relaxin = Not at all Being so restless that it is hard to sit still: 0 = Not at all Becoming easily annoyed or irritable: 0 = Not at all Feeling afraid as if something awful might happen: 0 = Not at all Total COSME-7 score (0-4 normal; 5-9 mild; 10-14 moderate; 15-21 severe): 0 Source: Developed by Drs. Jared Brown, Genia Gibson, Spenser Hernandez and colleagues, with an educational genny from [employer]. COSME-7 Assessment Billing COSME-7 Assessment Tool: COSME-7 Assessment 94629 Review of Systems Const Denies chills and Denies fever(s) ENT Denies epistaxis and Denies nasal discharge Card Denies chest pain Resp Denies chest congestion, Denies cough and Denies hemoptysis GI Denies diarrhea and Denies nausea Neuro Reports no additional complaints Psych Reports no additional complaints Endo Reports no additional complaints Physical exam (Primary Care) Vital Signs: Last Vital Signs Pulse 75 03/14/24 08:10 BP 132/78 03/14/24 08:10 Pulse Ox 96 03/14/24 08:10 Oxygen Delivery Method Room Air 03/14/24 08:10 BMI result Body Mass Index 27.9 Tobacco/Smoking Status: Tobacco use Status Tobacco use date assessed 03/14/24 03/14/24 08:14 Patient Tobacco Use Status Never used Tobacco 03/14/24 08:14 e-Cigarette/Vaping Use Never Used 03/14/24 08:14 PHQ-9: PHQ-9 Score PHQ-9: Total score 0 03/14/24 08:37 Depression Screening Interpretation: Negative Thrive Assessment: Date of Thrive Assessment Date Thrive assessed 03/14/24 03/14/24 08:14 Currently or been in a relationship where the following occur: No concerns reported Const General: cooperative, comfortable and no acute distress Orientation/consciousness: patient oriented x3 HENMT Other: Both ears filled with wax Head: Yes normocephalic Eyes General: appearance normal, both eyes and all related structures Neck Neck: Yes supple Resp Effort & Inspection: normal respiratory effort, no cough and no stridor Cardio Rhythm: regular rhythm Heart sounds: S1 normal heart sound present and S2 normal heart sound present Skin General skin exam: turgor normal Neuro General: patient oriented x3, tone normal and moves all extremities Extrem Right lower extremity: no edema Left lower extremity: no edema Office Procedures Cerumen Removal From which ear canal was the cerumen removed: bilateral Removal: irrigation Notes: patient tolerated procedure well, no complications and ear canal clear [id number] Irrigation/Lavage Assessment and Plan Assessment & Plan (1) Skin rash: Code(s): R21 - Rash and other nonspecific skin eruption (2) Coronary artery disease: Code(s): I25.10 - Atherosclerotic heart disease of three affiliated coronary artery without angina pectoris Qualifiers: Associated angina: without angina Coronary Disease-Associated Artery/Lesion type: three affiliated artery [place] vs. transplanted heart: three affiliated heart Qualified Code(s): I25.10 - Atherosclerotic heart disease of three affiliated coronary artery without angina pectoris (3) Excessive cerumen in both ear canals: Code(s): H61.23 - Impacted cerumen, bilateral (4) Moderate aortic valve regurgitation: Code(s): I35.1 - Nonrheumatic aortic (valve) insufficiency (5) Lipid disorder: Code(s): E78.9 - Disorder of lipoprotein metabolism, unspecified Plan Patient is 83-year-old male came in today for his regular follow-up appointment Patient has developed rash front of his chest for the past 2 months which is itchy He thought he had shingles, patient has had Shingrix vaccine 2018 On examination it seems like tinea corporis, patient has similar rash in groin area off and on I have sent Lotrisone cream, patient is to use that at night for 2 weeks and get back to me to update me. Patient have coronary artery disease, he is seeing Dr. Collado [facility] all his medications are through them Appointment coming up of this month Patient comes in every 4 months for ear irrigation He is active, swims every day Ears were irrigated, patient forgot to use Debrox to soften the wax Patient tolerated procedure well Blood pressure is stable Follow-up 4 months Medications: New clotrimazole-betamethasone 1-0.05 % 1 appl topical ONCE 45 grams 0RF 30 days Coding Level of Care Code Est Pt Level 4 (11456) Diagnoses Skin rash R21 Coronary artery disease involving three affiliated coronary artery of three affiliated heart without angina pectoris I25.10 Associated angina: without angina Coronary Disease-Associated Artery/Lesion type: three affiliated artery [place] vs. transplanted heart: three affiliated heart Excessive cerumen in both ear canals H61.23 Moderate aortic valve regurgitation I35.1 Lipid disorder E78.9 CPT Codes Office Procedure - CPT: 99890-Rns Irrigation/Lavage ([id number]) Additional Codes COSME-7 Assessment Billing - COSME-7 Assessment Tool: COSME-7 Assessment 28447 ([id number])
== END 2024-03-14 09:06 | disposition home or self-care (01) ==
PROVIDERS: PCP Internal Medicine; Visit Provider Internal Medicine
DX: R21 Rash and other nonspecific skin eruption (principal); I25.10 Atherosclerotic heart disease of native coronary artery without angina pectoris; H61.23 Impacted cerumen, bilateral; I35.1 Nonrheumatic aortic (valve) insufficiency; E78.9 Disorder of lipoprotein metabolism, unspecified
CPT/HCPCS: 69209; 99214

== ENCOUNTER 2024-03-20 07:59 | Outpatient (AMB) | payer MEDICARE, SELFPAY ==
[2024-03-20 08:13] VITALS: BP 94/56; PULSE 64; BMI 28.0
--- NOTE | 2024-03-20 08:13 | A.OFFVIS_ITS ---
Vital Signs 03/20/24 08:13 Height 6 ft Weight 206 lb 12.697 oz BMI 28.0 BP 94/56 L Blood Pressure Location Lt brachial Position Sitting Pulse 64 Intake Visit Reasons: 1 yr f/up Psychology Technician Required: No Accompanied by: Self / Same As Patient Allergies metoprolol Allergy (Unknown, Uncoded 07/17/23 08:37) on high dose feels tired Medication List - Last Reconciled 03/20/24 by Alfredo Collado MD aspirin 81 mg PO DAILY clotrimazole-betamethasone 1-0.05 % 1 appl topical ONCE 30 days metoprolol succinate ER 25 mg PO BEDTIME rosuvastatin 40 mg PO DAILY HPI Comments Details: Jaime returns for follow-up regarding coronary artery disease. 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 Since last seen, he states he is doing fine. He exercise regularly and also goes to the [facility] to swim as well. Never had symptoms like angina or in fact anything cardiac sounding. [facility] Medical History PVC (premature ventricular contraction) Atherosclerotic cardiovascular disease Swelling Fall Excessive cerumen in both ear canals Benign prostatic hyperplasia Lipid disorder Moderate aortic valve regurgitation Coronary artery disease Surgical History History of surgery History of hemorrhoidectomy Family History Father Leukemia Depression Mother Dementia Maternal Grandfather No problems noted. Maternal Grandmother No problems noted. Paternal Grandfather No problems noted. Paternal Grandmother No problems noted. Brother No problems noted. Son No problems noted. Son No problems noted. Son No problems noted. Daughter No problems noted. Other Mental health disorder Social History Housing: House Alcohol intake: never Patient Tobacco Use Status: Never used Tobacco e-Cigarette/Vaping Use: Never Used service: Yes Current occupational status: retired Cognitive needs: No Hearing needs: No Vision needs: Yes Review of Systems Const All systems reviewed & are unremarkable except as noted in HPI and below Reports as per HPI and Reports no additional complaints Eyes Reports as per HPI and Denies no additional complaints ENT Denies no additional complaints and Reports as per HPI Card Reports as per HPI, Reports no additional complaints, Denies acrocyanosis, Denies chest pain, Denies leg edema, Denies lightheadedness, Denies palpitations and Denies dyspnea Resp Reports as per HPI, Denies no additional complaints and Denies dyspnea GI Reports as per HPI and Denies no additional complaints Reports no additional complaints and Reports as per HPI Musc Reports no additional complaints and Reports as per HPI Skin/Breast Reports system reviewed and no additional complaints, except as documented Neuro Reports no additional complaints and Reports as per HPI Psych Reports no additional complaints and Reports as per HPI Endo Reports no additional complaints, Reports as per HPI and Denies palpitations [place]/Lymph Reports no additional complaints and Reports as per HPI Aller/Immun Reports no additional complaints and Reports as per HPI Physical Exam Vital Signs: Last Vital Signs Pulse 64 03/20/24 08:13 BP 94/56 L 03/20/24 08:13 BMI result Body Mass Index 28.0 Const General: comfortable and no acute distress Orientation/consciousness: patient oriented x3 HEENT Other: Unremarkable Head: Yes normal to inspection Neck Neck: Yes normal visual inspection Chest Chest palpation & inspection: normal inspection of the chest Resp Auscultation: clear to auscultation bilaterally Cardio Palpation: normal PMI Heart sounds: S1 normal heart sound present, S2 normal heart sound present, no gallops, no murmurs and no rubs GI Palpation (GI): Soft to palpation Back/Spine/Pelvis Other: unremarkable Skin General skin exam: no rashes or lesions noted Neuro General: patient oriented x3 Extrem General: Yes normal to inspection Psych Mental Status: mental status grossly normal Office Procedures EKG Details: EKG with underlying sinus rhythm at 64/Min; PAC with aberrant conduction versus PVC; nonspecific ST-T changes; normal CT and corrected QT. similar to prior. [id number], Complete Assessment & Plan Assessment & Plan (1) Atherosclerotic cardiovascular disease: Code(s): I25.10 - Atherosclerotic heart disease of [place] coronary artery without angina pectoris Category: Medical Plan: Remote coronary intervention, but no symptoms at this time. In the stress test from last year, he was able to reach 7 METS exercise capacity; reached 89% of max predicted heart rate but no angina. Frequent PVCs. Perfusion imaging unremarkable. Continue medical therapy. He is on aspirin statins. (2) PVC (premature ventricular contraction): Code(s): I49.3 - Ventricular premature depolarization Category: Medical Plan: In the last Holter, minimal burden. In the previous study, as much as 15% burden. He remains on a small dose of beta-blockers. (3) Nonrheumatic aortic valve regurgitation: Code(s): I35.1 - Nonrheumatic aortic (valve) insufficiency Category: Medical Plan: Echocardiogram with mild aortic regurgitation. Not hemodynamically significant. No specific implications at this time. Coding Level of Care Code Est Pt Level 3 (54505) Diagnoses Atherosclerotic cardiovascular disease I25.10 PVC (premature ventricular contraction) I49.3 Nonrheumatic aortic valve regurgitation I35.1 CPT Codes EKG - CPT: 29418-[id number], Complete ([id number])
== END 2024-03-20 08:47 | disposition home or self-care (01) ==
PROVIDERS: PCP Internal Medicine; Visit Provider Internal Medicine
DX: I25.10 Atherosclerotic heart disease of native coronary artery without angina pectoris (principal); I49.3 Ventricular premature depolarization; I35.1 Nonrheumatic aortic (valve) insufficiency
CPT/HCPCS: 93010; 99213

== ENCOUNTER → 2024-03-20 07:59 | Outpatient (BNVA) | payer MEDICARE, SELFPAY | PROVIDERS: PCP Internal Medicine; Visit Provider Internal Medicine | DX: I49.3 Ventricular premature depolarization (principal); I25.10 Atherosclerotic heart disease of native coronary artery without angina pectoris; I10 Essential (primary) hypertension; I35.1 Nonrheumatic aortic (valve) insufficiency; Z98.61 Coronary angioplasty status | CPT/HCPCS: 93005; 99212 ==

== ENCOUNTER 2024-06-18 13:51 | Outpatient (AMB) | payer MEDICARE, SELFPAY ==
--- NOTE | 2024-06-18 14:07 | AM.OFFWIN_ITS ---
Intake Vital Signs 06/18/24 14:08 Weight 208 lb BP 122/80 Blood Pressure Location Rt brachial Position Sitting Pulse 77 Pulse Source Pulse Oximeter Pulse Oximetry (%) 98 Oxygen Delivery Method Room Air Intake Visit Reasons: EP Rash Intake Note: Patient here for rash that has been present for a while. Patient Tobacco Use Status: Never used Tobacco Allergies metoprolol Allergy (Unknown, Uncoded 06/18/24 14:10) on high dose feels tired Do you need a note to return to daycare/school/sports/work: No HPI EP Rash HPI Details This note is constructed using voice recognition software. While every effort has been made to ensure accuracy, lime kiln operator errors may have been included. The patient is a 84 year old male who presents to the clinic today with rash. He reports he has had this rash intermittently since October. He said that this could be a food allergy, however has been unable to locate the source. The rash is flat, red, patchy, covering his arms, abdomen, back, and legs. He reports that it is itchy at times. His PCP prescribed him a steroid cream which he is still applying and it does help. He also just started an [id number] second-generation antihistamine to help the symptoms. He wanted to make sure if he should try anything else to add to the plan. He denies fever, chills, joint pain. [facility] Medical History PVC (premature ventricular contraction) Atherosclerotic cardiovascular disease Swelling Fall Excessive cerumen in both ear canals Benign prostatic hyperplasia Lipid disorder Moderate aortic valve regurgitation Coronary artery disease Surgical History History of surgery History of hemorrhoidectomy Family History Father Leukemia Depression Mother Dementia Maternal Grandfather No problems noted. Maternal Grandmother No problems noted. Paternal Grandfather No problems noted. Paternal Grandmother No problems noted. Brother No problems noted. Son No problems noted. Son No problems noted. Son No problems noted. Daughter No problems noted. Other Mental health disorder Social History Housing: House Alcohol intake: never Patient Tobacco Use Status: Never used Tobacco e-Cigarette/Vaping Use: Never Used service: Yes Current occupational status: retired Cognitive needs: No Hearing needs: No Vision needs: Yes Review of Systems Const All systems reviewed & are unremarkable except as noted in HPI and below Physical Exam Vital Signs: Last Vital Signs Pulse 77 06/18/24 14:08 BP 122/80 06/18/24 14:08 Pulse Ox 98 06/18/24 14:08 Oxygen Delivery Method Room Air 06/18/24 14:08 Const General: cooperative, healthy appearing, comfortable, no acute distress and well developed Orientation/consciousness: patient oriented x3 Limitations: no limitations Resp Effort & Inspection: normal respiratory effort and able to speak in complete sentences Skin Other: Flat, red, patchy rash, approximately 1 cm in diameter for each lesion, widespread throughout upper and lower extremities, and trunk. No surrounding erythema, warmth, discharge. Neuro General: patient oriented x3 Assessment & Plan Assessment & Plan (1) Skin rash: Code(s): R21 - Rash and other nonspecific skin eruption Plan: Etiology unclear, may be repeat exposure rash. Advised to add famotidine for histamine blocking effect in addition to his current treatment plan. Advised follow up with PCP with worsening or failure to resolve. Plan See above for full details and plan. Coding Level of Care Code Est Pt Level 3 (04343) Diagnoses Skin rash R21
[2024-06-18 14:08] VITALS: BP 122/80; PULSE 77; O2SAT 98
== END 2024-06-18 15:30 | disposition home or self-care (01) ==
PROVIDERS: PCP Internal Medicine; Visit Provider Registered Nurse
DX: R21 Rash and other nonspecific skin eruption (principal)

== ENCOUNTER → 2024-06-18 13:51 | Outpatient (BNVA) | payer MEDICARE, SELFPAY | PROVIDERS: PCP Internal Medicine; Visit Provider Registered Nurse | DX: R21 Rash and other nonspecific skin eruption (principal) | CPT/HCPCS: 99212 ==

== ENCOUNTER 2024-06-25 10:53 | Outpatient (AMB) | payer MEDICARE, SELFPAY ==
[2024-06-25 11:05] VITALS: BP 128/64; PULSE 58; O2SAT 95; BMI 27.8
--- NOTE | 2024-06-25 11:05 | A.OFFPC_ITS ---
Vital Signs 06/25/24 11:05 Height 6 ft Weight 205 lb 2 oz BMI 27.8 BP 128/64 Blood Pressure Location Lt brachial Position Sitting Pulse 58 Pulse Source Pulse Oximeter Pulse Oximetry (%) 95 Oxygen Delivery Method Room Air Intake Visit Reasons: rash Allergies metoprolol Allergy (Unknown, Uncoded 06/18/24 14:10) on high dose feels tired Medication List - Last Reconciled 06/25/24 by Jb Vicente MD aspirin 81 mg PO DAILY clotrimazole-betamethasone 1-0.05 % 1 appl topical ONCE 30 days metoprolol succinate ER 25 mg PO BEDTIME rosuvastatin 40 mg PO DAILY Tobacco use date assessed: 06/25/24 Fall risk assessment: No Falls in past year Last assessed Fall Risk: 06/25/24 Dental Screening Dental Screen Date: 06/25/24 Did you have a dental visit in the last 12 months?: Yes Did you have a dental problem in the last 6 months where you did not have access to dental care?: No Was dental information given to patient?: Patient has dentist HPI rash HPI Details Patient is 84-year-old gentleman who has been having recurrent skin rash for few months now Patient says that he had can not figure out what is causing the rash The only thing he changed in his diet is that he is eating a sudden kind of cheese He started taking long-acting antihistamine [id number] which has helped resolve rash somewhat He still have extensive rash in his back and abdomen and arms Rash is pruritic and patchy I have sent prednisone 10 mg tablet patient is to take 1 for 5 days and keep the rest I will also we will be booking appointment with the Dermatology Patient was instructed to keep a food diary and see if he can correlate rash with certain foods he is eating. [facility] Medical History PVC (premature ventricular contraction) Atherosclerotic cardiovascular disease Swelling Fall Excessive cerumen in both ear canals Benign prostatic hyperplasia Lipid disorder Moderate aortic valve regurgitation Coronary artery disease Surgical History History of surgery History of hemorrhoidectomy Family History Father Leukemia Depression Mother Dementia Maternal Grandfather No problems noted. Maternal Grandmother No problems noted. Paternal Grandfather No problems noted. Paternal Grandmother No problems noted. Brother No problems noted. Son No problems noted. Son No problems noted. Son No problems noted. Daughter No problems noted. Other Mental health disorder Social History Housing: House Alcohol intake: never Patient Tobacco Use Status: Never used Tobacco e-Cigarette/Vaping Use: Never Used service: Yes Current occupational status: retired Cognitive needs: No Hearing needs: No Vision needs: Yes Questionnaire Thrive Questionnaire Date Thrive assessed: 03/12/24 I am a: Patient What is your living situation today?: I have a steady place to live Within the past 12 months, did the food you bought not last and you didn't have the money to get more?: Never true Within the past 12 months, did you worry whether your food would run out before you got money to buy more?: Never true Do you have trouble paying for medicines?: No Do you have trouble getting transportation to medical appointments?: No Do you have trouble paying your heating and electricity bill?: No Do you have trouble taking care of your child, family member or friend?: No Do you have trouble with day-to-day activities such as bathing, preparing meals, shopping, managing finances, etc.?: No Are you currently unemployed and looking for a job?: No Are you interested in more education?: No Please select the resources that you would like help with: Utilities Currently or been in a relationship where the following occur: No concerns reported THRIVE Score: 0 AUDIT C Alcohol Use Questionnaire (AUDIT-C) 1. How often do you have a drink containing alcohol?: Never 3. How often do you have six or more drinks on one occasion?: Never Total Score: 0 Score Reviewed/Action Taken: Yes COSME-7 AMB Questionnaire COSME-7 Date COSME - 7 assessed: 03/14/24 Source: Developed by Drs. Jared Brown, Genia Gibson, Spenser Hernandez and colleagues, with an educational genny from [employer]. Review of Systems Const Denies chills and Denies fever(s) ENT Denies epistaxis and Denies nasal discharge Card Denies chest pain Resp Denies chest congestion, Denies cough and Denies hemoptysis GI Denies diarrhea and Denies nausea Neuro Reports no additional complaints Psych Reports no additional complaints Endo Reports no additional complaints Physical exam (Primary Care) Vital Signs: Last Vital Signs Pulse 58 06/25/24 11:05 BP 128/64 06/25/24 11:05 Pulse Ox 95 06/25/24 11:05 Oxygen Delivery Method Room Air 06/25/24 11:05 BMI result Body Mass Index 27.8 Tobacco/Smoking Status: Tobacco use Status Tobacco use date assessed 06/25/24 06/25/24 11:07 Patient Tobacco Use Status Never used Tobacco 06/25/24 11:07 e-Cigarette/Vaping Use Never Used 06/25/24 11:07 Thrive Assessment: Date of Thrive Assessment Date Thrive assessed 03/12/24 06/25/24 11:07 Currently or been in a relationship where the following occur: No concerns reported Const General: cooperative, comfortable and no acute distress Orientation/consciousness: patient oriented x3 HENMT Head: Yes normocephalic Eyes General: appearance normal, both eyes and all related structures Neck Neck: Yes supple Resp Effort & Inspection: normal respiratory effort, no cough and no stridor Skin Other: Patchy raised rash abdomen back arms General skin exam: turgor normal Neuro General: patient oriented x3, tone normal and moves all extremities Extrem Right lower extremity: no edema Left lower extremity: no edema Coding Level of Care Code Est Pt Level 3 (28750) Diagnoses Skin rash R21 Assessment & Plan Assessment & Plan (1) Skin rash: Code(s): R21 - Rash and other nonspecific skin eruption Category: Medical Plan Patient is 84-year-old gentleman who has been having recurrent skin rash for few months now Patient says that he had can not figure out what is causing the rash The only thing he changed in his diet is that he is eating a sudden kind of cheese He started taking long-acting antihistamine [id number] which has helped resolve rash somewhat He still have extensive rash in his back and abdomen and arms Rash is pruritic and patchy I have sent prednisone 10 mg tablet patient is to take 1 for 5 days and keep the rest I will also we will be booking appointment with the Dermatology Patient was instructed to keep a food diary and see if he can correlate rash with certain foods he is eating. Orders: Orders Complete Blood Count Auto Diff Today E78.9 - Disorder of lipoprotein metabolism, unspecified, I25.10 - Atherosclerotic heart disease of [place] coronary artery without angina pectoris, I49.3 - Ventricular premature depolarization Comprehensive Met. Panel Today E78.9 - Disorder of lipoprotein metabolism, unspecified, I25.10 - Atherosclerotic heart disease of [place] coronary artery without angina pectoris, I49.3 - Ventricular premature depolarization LDL Cholesterol Direct Today E78.9 - Disorder of lipoprotein metabolism, unspecified, I25.10 - Atherosclerotic heart disease of [place] coronary artery without angina pectoris, I49.3 - Ventricular premature depolarization Referrals Dermatology Referral R21 - Rash and other nonspecific skin eruption Medications: New prednisone 10 mg PO DAILY 10 days 10 tabs 0RF
== END 2024-06-25 12:09 | disposition home or self-care (01) ==
LOC: HO.HMCC 10:53
PROVIDERS: PCP Internal Medicine; Visit Provider Internal Medicine
DX: R21 Rash and other nonspecific skin eruption (principal)

== ENCOUNTER → 2024-06-25 10:53 | Outpatient (BNVA) | payer MEDICARE, SELFPAY | PROVIDERS: PCP Internal Medicine; Visit Provider Internal Medicine | DX: R21 Rash and other nonspecific skin eruption (principal) | CPT/HCPCS: 99212 ==

== ENCOUNTER 2024-07-18 07:49 | Outpatient (AMB) | payer MEDICARE, SELFPAY ==
[2024-07-18 07:56] VITALS: BP 124/80; PULSE 66; O2SAT 98; BMI 28.3
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
== END 2024-07-18 10:46 | disposition home or self-care (01) ==
PROVIDERS: PCP Internal Medicine; Visit Provider Internal Medicine
DX: H61.22 Impacted cerumen, left ear (principal); R21 Rash and other nonspecific skin eruption; N49.2 Inflammatory disorders of scrotum

== ENCOUNTER 2024-07-18 07:49 | Outpatient (REF) | payer MEDICARE, SELFPAY ==
[2024-07-18 10:55] LABS: MANUAL DIFF FLAG NO
[2024-07-18 11:03] LABS: Basophils Absolute Auto 0.1 X10*3/uL (0.0-0.2); Basophils Percent Auto 0.8 % (0-2); Eosinophils Absolute Auto 0.2 X10*3/uL (0.0-0.4); Hematocrit 46.3 % (42.0-52.0); Hemoglobin 15.2 g/dl (14.0-18.0); Imm Gran Abs Auto 0.02 X10*3/uL (0.00-0.03); Imm Gran Pct Auto 0.3 % (0.0-0.4); Lymphocytes Percent Auto 26.6 % (20-40); Mean Corpuscular HGB Conc 32.8 g/dl (31.0-36.0); Mean Corpuscular Hemoglobin 31.3 pg (27.0-33.0); Mean Corpuscular Volume 95.3 fL (80.0-98.0); Mean Platelet Volume 12.2 fL (9.4-12.4); Monocytes Absolute Auto 0.5 X10*3/uL (0.1-1.2); Monocytes Percent Auto 6.5 % (2-11); Neutrophils Absolute Auto 4.8 x10*3/uL (2.0-8.3); Neutrophils Percent Auto 62.8 % (45-73); Platelet Count 156 X10*3/uL (160-400); Red Blood Count 4.86 X10*6/uL (4.60-5.80); Red Cell Distribution Width 13.1 % (11.0-16.0); White Blood Count 7.7 X10*3/uL (4.8-10.8)
[2024-07-18 11:13] LABS: Alanine Aminotransferase 21 U/L (0-40); Albumin Level 3.7 g/dL (3.5-5.0); Alkaline Phosphatase 47 U/L (39-117); Anion Gap 11 (12-20); Aspartate Amino Transferase 30 U/L (5-37); Bilirubin Total 0.6 mg/dL (0.0-1.0); Blood Urea Nitrogen 17 mg/dL (9-16); Calcium 9.2 mg/dL (8.4-10.2); Carbon Dioxide 27 mmol/L (22-29); Chloride 111 mmol/L (96-108); Estimated Glomerular Filt Rate > 60; Glucose Random 92 mg/dL (60-115); Potassium 4.7 mmol/L (3.3-5.1); Sodium 144 mmol/L (135-145); Total Protein 6.7 g/dL (6.5-8.0)
[2024-07-20 11:04] LABS: LDL Cholesterol Direct 85 mg/dL (<100)
== END 2024-07-18 07:50 | disposition home or self-care (01) ==
LOC: HO.HMGCLDS 07:49
PROVIDERS: PCP Internal Medicine; Visit Provider Internal Medicine
DX: H61.22 Impacted cerumen, left ear (principal); R21 Rash and other nonspecific skin eruption; N49.2 Inflammatory disorders of scrotum; E78.9 Disorder of lipoprotein metabolism, unspecified; I25.10 Atherosclerotic heart disease of native coronary artery without angina pectoris; I49.3 Ventricular premature depolarization
CPT/HCPCS: 36415; 69209; 80053; 83721; 85025; 96127; 99212

== ENCOUNTER 2024-07-29 15:13 | Outpatient (AMB) | payer MEDICARE, SELFPAY ==
[2024-07-29 15:22] VITALS: BP 128/84; PULSE 67; O2SAT 97; BMI 28.0
--- NOTE | 2024-07-29 15:22 | A.OFFPC_ITS ---
Vital Signs 07/29/24 15:22 Height 6 ft Weight 206 lb 9 oz BMI 28.0 BP 128/84 Blood Pressure Location Lt brachial Position Sitting Pulse 67 Pulse Source Pulse Oximeter Pulse Oximetry (%) 97 Oxygen Delivery Method Room Air Intake Visit Reasons: 1.5 week follow up per Dr[address] Vicente Allergies metoprolol Allergy (Unknown, Uncoded 07/18/24 07:56) on high dose feels tired Medication List - Last Reconciled 07/29/24 by Jb Vicente MD aspirin 81 mg PO DAILY clotrimazole-betamethasone 1-0.05 % 1 appl topical ONCE 30 days metoprolol succinate ER 25 mg PO BEDTIME rosuvastatin 40 mg PO DAILY 90 days Tobacco use date assessed: 07/29/24 Fall risk assessment: No Falls in past year Last assessed Fall Risk: 07/29/24 Dental Screening Dental Screen Date: 07/29/24 Did you have a dental visit in the last 12 months?: No Did you have a dental problem in the last 6 months where you did not have access to dental care?: No Was dental information given to patient?: Patient has dentist HPI 1.5 week follow up per Dr. Vicente HPI Details Patient came for follow-up on while on his scrotum He was treated with antibiotic while has resolved Biopsy of skin lesion came back as basal cell carcinoma He has appointment with Dermatology again in few days for deeper removal of tissue Continued to have the rash on his body which is being addressed by the protective services social worker [facility] Medical History PVC (premature ventricular contraction) Atherosclerotic cardiovascular disease Swelling Fall Excessive cerumen in both ear canals Benign prostatic hyperplasia Lipid disorder Moderate aortic valve regurgitation Coronary artery disease Surgical History History of surgery History of hemorrhoidectomy Family History Father Leukemia Depression Mother Dementia Maternal Grandfather No problems noted. Maternal Grandmother No problems noted. Paternal Grandfather No problems noted. Paternal Grandmother No problems noted. Brother No problems noted. Son No problems noted. Son No problems noted. Son No problems noted. Daughter No problems noted. Other Mental health disorder Social History Housing: House Alcohol intake: never Patient Tobacco Use Status: Never used Tobacco e-Cigarette/Vaping Use: Never Used service: Yes Current occupational status: retired Cognitive needs: No Hearing needs: No Vision needs: Yes Questionnaire Thrive Questionnaire Date Thrive assessed: 07/29/24 I am a: Patient What is your living situation today?: I have a steady place to live Within the past 12 months, did the food you bought not last and you didn't have the money to get more?: Never true Within the past 12 months, did you worry whether your food would run out before you got money to buy more?: Never true Do you have trouble paying for medicines?: No Do you have trouble getting transportation to medical appointments?: No Do you have trouble paying your heating and electricity bill?: No Do you have trouble taking care of your child, family member or friend?: No Do you have trouble with day-to-day activities such as bathing, preparing meals, shopping, managing finances, etc.?: No Are you currently unemployed and looking for a job?: No Are you interested in more education?: No Please select the resources that you would like help with: Utilities Currently or been in a relationship where the following occur: No concerns reported THRIVE Score: 0 AUDIT C Alcohol Use Questionnaire (AUDIT-C) 1. How often do you have a drink containing alcohol?: Never 3. How often do you have six or more drinks on one occasion?: Never Total Score: 0 Score Reviewed/Action Taken: Yes COSME-7 AMB Questionnaire COSME-7 Date COSME - 7 assessed: 03/14/24 Source: Developed by Drs. Jared Brown, Genia Gibson, Spenser Hernandez and colleagues, with an educational genny from [employer]. Review of Systems Const All systems reviewed & are unremarkable except as noted in HPI and below Physical exam (Primary Care) Vital Signs: Last Vital Signs Pulse 67 07/29/24 15:22 BP 128/84 07/29/24 15:22 Pulse Ox 97 07/29/24 15:22 Oxygen Delivery Method Room Air 07/29/24 15:22 BMI result Body Mass Index 28.0 Tobacco/Smoking Status: Tobacco use Status Tobacco use date assessed 07/29/24 07/29/24 15:27 Patient Tobacco Use Status Never used Tobacco 07/29/24 15:23 e-Cigarette/Vaping Use Never Used 07/29/24 15:23 Thrive Assessment: Date of Thrive Assessment Date Thrive assessed 07/29/24 07/29/24 15:27 Currently or been in a relationship where the following occur: No concerns reported Const General: no acute distress Orientation/consciousness: patient oriented x3 Eyes General: appearance normal, both eyes and all related structures Resp Effort & Inspection: normal respiratory effort and able to speak in complete sentences Skin Other: Continued to have maculopapular rash mostly in the back and front, right forearm biopsy site healing Neuro General: patient oriented x3 Psych Mental Status: mental status grossly normal Coding Level of Care Code Est Pt Level 3 (45198) Diagnoses Skin rash R21 Basal cell carcinoma (BCC) of skin of right upper extremity including shoulder C44.612 Basal cell carcinoma location: upper extremity including shoulder Laterality: right Assessment & Plan Assessment & Plan (1) Skin rash: Code(s): R21 - Rash and other nonspecific skin eruption Category: Medical (2) Basal cell carcinoma: Code(s): C44.91 - Basal cell carcinoma of skin, unspecified Category: Medical Qualifiers: Basal cell carcinoma location: upper extremity including shoulder Laterality: right Qualified Code(s): C44.612 - Basal cell carcinoma of skin of right upper limb, including shoulder Plan Patient came for follow-up on while on his scrotum He was treated with antibiotic while has resolved Biopsy of skin lesion came back as basal cell carcinoma He has appointment with Dermatology again in few days for deeper removal of tissue Continued to have the rash on his body which is being addressed by the protective services social worker
== END 2024-07-29 15:47 | disposition home or self-care (01) ==
PROVIDERS: PCP Internal Medicine; Visit Provider Internal Medicine
DX: R21 Rash and other nonspecific skin eruption (principal); C44.612 Basal cell carcinoma of skin of right upper limb, including shoulder

== ENCOUNTER → 2024-07-29 15:13 | Outpatient (BNVA) | payer MEDICARE, SELFPAY | PROVIDERS: PCP Internal Medicine; Visit Provider Internal Medicine | DX: R21 Rash and other nonspecific skin eruption (principal); C44.612 Basal cell carcinoma of skin of right upper limb, including shoulder | CPT/HCPCS: 99212 ==

== ENCOUNTER 2024-10-28 08:33 | Outpatient (AMB) | payer MEDICARE, SELFPAY ==
[2024-10-28 08:43] VITALS: BP 108/62; PULSE 57; RESP 17; TEMP 36.6; O2SAT 95; BMI 28.3
--- NOTE | 2024-10-28 08:43 | A.OFFPC_ITS ---
Vital Signs 10/28/24 08:43 Height 6 ft Weight 208 lb 6 oz BMI 28.3 BP 108/62 Blood Pressure Location Rt brachial Position Sitting Respiration 17 Pulse 57 Pulse Source Pulse Oximeter Temp 97.9 F Temp Source Oral Pulse Oximetry (%) 95 Oxygen Delivery Method Room Air Intake Visit Reasons: 3m follow up Allergies metoprolol Allergy (Unknown, Uncoded 07/18/24 07:56) on high dose feels tired Medication List - Last Reconciled 10/28/24 by Jb Vicente MD aspirin 81 mg PO DAILY clotrimazole-betamethasone 1-0.05 % 1 appl topical ONCE 30 days metoprolol succinate ER 25 mg PO BEDTIME rosuvastatin 40 mg PO DAILY 90 days Tobacco use date assessed: 10/28/24 Fall risk assessment: No Falls in past year Last assessed Fall Risk: 10/28/24 Dental Screening Dental Screen Date: 10/28/24 Did you have a dental visit in the last 12 months?: No Did you have a dental problem in the last 6 months where you did not have access to dental care?: No Was dental information given to patient?: Patient declined HPI 3m follow up HPI Details History - The patient is an 84-year-old male pre senting with cerumen impaction. - Regularly requires ear cleanings, appr oximately every three months. - Currently has impaction in the right e ar. - Stopped swimming, possibly contributin g to a wax build-up. - seeing integration lead for the manageme nt of basal cell carcinoma of the right forearm. - Initially identified via biopsy, which confirmed basal cell carcinoma. - Procedures for additional tissue remov al are scheduled for November 19. - Awaiting results from another biopsy f or further examination. - established with Cardiology for coron merna artery disease and non rheumatic aortic valve regurgitation Problem List - Basal cell carcinoma of the right fore arm - Ear cerumen impaction - coronary artery disease - non rheumatic aortic valve regurgitat ion Patient Instructions - right ear cleaned with good result - The upcoming procedure for basal cell carcinoma is scheduled for November 19; ensure availability. - Keep in contact with dermatology regar michael biopsy results. - continue follow up with the Cardiolog y. Review of Systems - General: No fever no chills - Neurological: No headaches no dizziness - Ear nose throat: No sore throat no hearing difficulty no ear pain - Cardiovascular: No syncope, no chest pain, no palpitations - Gastrointestinal: No nausea vomiting or diarrhea - Endocrine: No polyuria polydipsia no heat intolerance - Genitourinary: No dysuria , no blood in urine Physical Exam General: No acute distress HEENT: Right ear needs cleaning Neck: Supple Respiratory system: Able to talk in full sentences, no audible wheeze Cardiovascular: S1-S2 regular in rate and rhythm Gastrointestinal: No pain Extremities: No new findings ACCOUNT EXECUTIVE KEY ACCOUNTS: Alert awake oriented x3 motor sensory intact Skin: Basal cell carcinoma on right forearm, normal turgor [facility] Medical History PVC (premature ventricular contraction) Atherosclerotic cardiovascular disease Swelling Fall Excessive cerumen in both ear canals Benign prostatic hyperplasia Lipid disorder Moderate aortic valve regurgitation Coronary artery disease Surgical History History of surgery History of hemorrhoidectomy Family History Father Leukemia Depression Mother Dementia Maternal Grandfather No problems noted. Maternal Grandmother No problems noted. Paternal Grandfather No problems noted. Paternal Grandmother No problems noted. Brother No problems noted. Son No problems noted. Son No problems noted. Son No problems noted. Daughter No problems noted. Other Mental health disorder Social History Housing: House Alcohol intake: never Patient Tobacco Use Status: Never used Tobacco e-Cigarette/Vaping Use: Never Used service: Yes Current occupational status: retired Cognitive needs: No Hearing needs: No Vision needs: Yes Questionnaire PHQ-9 Over the last 2 weeks, how often have you been bothered by any of the following problems? 13513 - PHQ-9 Billing: Yes Source: Developed by Drs. Jared Brown, Genia Gibson, Spenser Hernandez and colleagues, with an educational genny from [employer]. Thrive Questionnaire Date Thrive assessed: 10/28/24 I am a: Patient What is your living situation today?: I have a steady place to live Within the past 12 months, did the food you bought not last and you didn't have the money to get more?: Never true Within the past 12 months, did you worry whether your food would run out before you got money to buy more?: Never true Do you have trouble paying for medicines?: No Do you have trouble getting transportation to medical appointments?: No Do you have trouble paying your heating and electricity bill?: No Do you have trouble taking care of your child, family member or friend?: No Do you have trouble with day-to-day activities such as bathing, preparing meals, shopping, managing finances, etc.?: No Are you currently unemployed and looking for a job?: No Are you interested in more education?: No Please select the resources that you would like help with: None Currently or been in a relationship where the following occur: No concerns reported THRIVE Score: 0 AUDIT C Alcohol Use Questionnaire (AUDIT-C) 1. How often do you have a drink containing alcohol?: Never 3. How often do you have six or more drinks on one occasion?: Never Total Score: 0 Score Reviewed/Action Taken: Yes COSME-7 AMB Questionnaire COSME-7 Date COSME - 7 assessed: 10/28/24 Feeling nervous, anxious, or on edge: 0 = Not at all Not being able to stop or control worryin = Not at all Worrying too much about different things: 0 = Not at all Trouble relaxin = Not at all Being so restless that it is hard to sit still: 0 = Not at all Becoming easily annoyed or irritable: 0 = Not at all Feeling afraid as if something awful might happen: 0 = Not at all Total COSME-7 score (0-4 normal; 5-9 mild; 10-14 moderate; 15-21 severe): 0 Source: Developed by Drs. Jared Brown, Genia Gibson, Spenser Hernandez and colleagues, with an educational genny from [employer]. COSME-7 Assessment Billing COSME-7 Assessment Tool: COSME-7 Assessment 04715 Physical exam (Primary Care) Vital Signs: Last Vital Signs Temp 97.9 F 10/28/24 08:43 Pulse 57 10/28/24 08:43 Resp 17 10/28/24 08:43 BP 108/62 10/28/24 08:43 Pulse Ox 95 10/28/24 08:43 Oxygen Delivery Method Room Air 10/28/24 08:43 BMI result Body Mass Index 28.3 Tobacco/Smoking Status: Tobacco use Status Tobacco use date assessed 10/28/24 10/28/24 08:50 Patient Tobacco Use Status Never used Tobacco 10/28/24 08:50 e-Cigarette/Vaping Use Never Used 10/28/24 08:50 Thrive Assessment: Date of Thrive Assessment Date Thrive assessed 10/28/24 10/28/24 08:50 Currently or been in a relationship where the following occur: No concerns reported Office Procedures Cerumen Removal From which ear canal was the cerumen removed: right Removal: irrigation Notes: patient tolerated procedure well, no complications and ear canal clear [id number] Irrigation/Lavage Coding Level of Care Code Est Pt Level 3 (19526) Complex EM visit Add On G2211 Diagnoses Excessive cerumen in right ear canal H61.21 Basal cell carcinoma (BCC) of skin of right upper extremity including shoulder C44.612 Basal cell carcinoma location: upper extremity including shoulder Laterality: right Nonrheumatic aortic valve regurgitation I35.1 Atherosclerotic cardiovascular disease I25.10 CPT Codes Office Procedure - CPT: 58179-Qkn Irrigation/Lavage ([id number]) Additional Codes COSME-7 Assessment Billing - COSME-7 Assessment Tool: COSME-7 Assessment 42786 ([id number]) PHQ-9 - 97625 - PHQ-9 Billing: Yes ([id number]) Assessment & Plan Assessment & Plan (1) Excessive cerumen in right ear canal: Code(s): H61.21 - Impacted cerumen, right ear Category: Medical (2) Basal cell carcinoma: Code(s): C44.91 - Basal cell carcinoma of skin, unspecified Category: Medical Qualifiers: Basal cell carcinoma location: upper extremity including shoulder Laterality: right Qualified Code(s): C44.612 - Basal cell carcinoma of skin of right upper limb, including shoulder (3) Nonrheumatic aortic valve regurgitation: Code(s): I35.1 - Nonrheumatic aortic (valve) insufficiency Category: Medical (4) Atherosclerotic cardiovascular disease: Code(s): I25.10 - Atherosclerotic heart disease of [place] coronary artery without angina pectoris Category: Medical Plan History - The patient is an 84-year-old male presenting with cerumen impaction. - Regularly requires ear cleanings, approximately every three months. - Currently has impaction in the right ear. - Stopped swimming, possibly contributing to a wax build-up. - seeing integration lead for the management of basal cell carcinoma of the right forearm. - Initially identified via biopsy, which confirmed basal cell carcinoma. - Procedures for additional tissue removal are scheduled for November 19. - Awaiting results from another biopsy for further examination. - established with Cardiology for coronary artery disease and non rheumatic aortic valve regurgitation Problem List - Basal cell carcinoma of the right forearm - Ear cerumen impaction - coronary artery disease - non rheumatic aortic valve regurgitation Patient Instructions - right ear cleaned with good result - The upcoming procedure for basal cell carcinoma is scheduled for November 19; ensure availability. - Keep in contact with dermatology regarding biopsy results. - continue follow up with the Cardiology.
== END 2024-10-28 09:20 | disposition home or self-care (01) ==
LOC: HO.HMCC 08:34
PROVIDERS: PCP Internal Medicine; Visit Provider Internal Medicine
DX: H61.21 Impacted cerumen, right ear (principal); C44.612 Basal cell carcinoma of skin of right upper limb, including shoulder; I35.1 Nonrheumatic aortic (valve) insufficiency; I25.10 Atherosclerotic heart disease of native coronary artery without angina pectoris

== ENCOUNTER → 2024-10-28 08:33 | Outpatient (BNVA) | payer MEDICARE, SELFPAY | PROVIDERS: PCP Internal Medicine; Visit Provider Internal Medicine | DX: H61.21 Impacted cerumen, right ear (principal); C44.612 Basal cell carcinoma of skin of right upper limb, including shoulder; I35.1 Nonrheumatic aortic (valve) insufficiency; I25.10 Atherosclerotic heart disease of native coronary artery without angina pectoris | CPT/HCPCS: 69209; 96127; 99212 ==

== ENCOUNTER 2025-03-17 09:43 | Outpatient (AMB) | payer MEDICARE, SELFPAY ==
[2025-03-17 09:45] VITALS: BP 118/72; PULSE 68; O2SAT 97; BMI 28.9
--- NOTE | 2025-03-17 09:45 | A.OFFPC_ITS ---
Vital Signs 03/17/25 09:45 Height 6 ft Weight 213 lb BMI 28.9 BP 118/72 Blood Pressure Location Lt brachial Position Sitting Pulse 68 Pulse Source Pulse Oximeter Pulse Oximetry (%) 97 Oxygen Delivery Method Room Air Intake Visit Reasons: 4 month follow up Allergies metoprolol Allergy (Unknown, Uncoded 03/17/25 09:45) on high dose feels tired Medication List - Last Reconciled 03/17/25 by Jb Vicente MD aspirin 81 mg PO DAILY clotrimazole-betamethasone 1-0.05 % 1 appl topical ONCE 30 days metoprolol succinate ER 25 mg PO BEDTIME rosuvastatin 40 mg PO DAILY 90 days Tobacco use date assessed: 10/28/24 Fall risk assessment: No Falls in past year Last assessed Fall Risk: 03/17/25 Dental Screening Dental Screen Date: 10/28/24 HPI 4 month follow up HPI Details Chief Complaint Annual physical exam. History of Present Illness The patient is an 84-year-old male presenting for a routine check-up and medication review. Medications Management: - The patient reported being under the c are of Dr. Collado, a trust and estates paralegal. - He is taking metoprolol and rosuvastat in as prescribed by Dr. Collado. Routine Health Assessment: - The patient mentioned seeing a dermato logist in [place] and has an upcoming appointment with Dr. Zamora. - An appointment with a trust and estates paralegal is scheduled for March 19. - The patient has stopped swimming as ad vised following a previous procedure. - He currently walks two miles daily for exercise. - No swelling was reported. Medical History: - Cardiovascular disease under the care of a trust and estates paralegal. - Dermatological concerns managed by a d ermatologist. Medications: - Metoprolol for cardiovascular health. - Rosuvastatin for the management of cho lesterol levels.. Problem List - Cardiovascular disease - Hyperlipidemia Patient Instructions - Continue taking prescribed medications as directed. - Attend the scheduled cardiology appoin tment on March 19. - Complete lab tests before the cardiolo gy visit, if possible. - Maintain regular physical activity by walking. - Monitor ears for any issues and follow up in three months for an ear exam. - Follow up with the senior product designer appoi ntment as scheduled. Review of Systems - General: No fever no chills - Neurological: No headaches no dizziness - Ear nose throat: No sore throat no hearing difficulty no ear pain - Cardiovascular: No syncope, no chest pain, no palpitations - Gastrointestinal: No nausea vomiting or diarrhea - Endocrine: No polyuria polydipsia no heat intolerance - Genitourinary: No dysuria , no blood in urine Physical Exam - General: No acute distress - HEENT: No acute findings , ears clean ed today - Neck: Supple - Respiratory system: Able to talk in f ull sentences, no audible wheeze - Cardiovascular: S1-S2 regular in rate and rhythm - Gastrointestinal: No pain - Extremities: No new findings - BASKET WEAVER: Alert awake oriented x3 motor se nsory intact - Skin: Normal turgor PFSH Medical History PVC (premature ventricular contraction) Atherosclerotic cardiovascular disease Swelling Fall Excessive cerumen in both ear canals Benign prostatic hyperplasia Lipid disorder Moderate aortic valve regurgitation Coronary artery disease Surgical History History of surgery History of hemorrhoidectomy Family History Father Leukemia Depression Mother Dementia Maternal Grandfather No problems noted. Maternal Grandmother No problems noted. Paternal Grandfather No problems noted. Paternal Grandmother No problems noted. Brother No problems noted. Son No problems noted. Son No problems noted. Son No problems noted. Daughter No problems noted. Other Mental health disorder Social History Housing: House Alcohol intake: never Patient Tobacco Use Status: Never used Tobacco e-Cigarette/Vaping Use: Never Used service: Yes Current occupational status: retired Cognitive needs: No Hearing needs: No Vision needs: Yes Questionnaire PHQ-9 Over the last 2 weeks, how often have you been bothered by any of the following problems? 1. Little interest or pleasure in doing things: not at all 2. Feeling down, depressed, or hopeless: not at all 3. Trouble falling or staying asleep, or sleeping too much: not at all 4. Feeling tired or having little energy: not at all 5. Poor appetite or overeating: not at all 6. Feeling bad about yourself - or that you are a failure or have let yourself or your family down: not at all 7. Trouble concentrating on things, such as reading the newspaper or watching television: not at all 8. Moving or speaking so slowly that other people could have noticed. Or the opposite - being so fidgety or restless that you have been moving around a lot more than usual: not at all 9. Thoughts that you would be better off or of hurting yourself in some way: not at all Total score: 0 Depression Screening Interpretation: Negative Depression Screening Done: Yes 79177 - PHQ-9 Billing: Yes Source: Developed by Drs. Jared Brown, Genia Gibson, Spenser Hernandez and colleagues, with an educational genny from [employer]. Thrive Questionnaire Date Thrive assessed: 03/17/25 I am a: Patient What is your living situation today?: I have a steady place to live Within the past 12 months, did the food you bought not last and you didn't have the money to get more?: Never true Within the past 12 months, did you worry whether your food would run out before you got money to buy more?: Never true Do you have trouble paying for medicines?: No Do you have trouble getting transportation to medical appointments?: No Do you have trouble paying your heating and electricity bill?: No Do you have trouble taking care of your child, family member or friend?: No Do you have trouble with day-to-day activities such as bathing, preparing meals, shopping, managing finances, etc.?: No Are you currently unemployed and looking for a job?: No Are you interested in more education?: No Please select the resources that you would like help with: None Currently or been in a relationship where the following occur: No concerns reported THRIVE Score: 0 COSME-7 AMB Questionnaire COSME-7 Date COSME - 7 assessed: 10/28/24 Source: Developed by Drs. Jared Brown, Genia Gibson, Spenser Hernandez and colleagues, with an educational genny from [employer]. Physical exam (Primary Care) Vital Signs: Last Vital Signs Pulse 68 03/17/25 09:45 BP 118/72 03/17/25 09:45 Pulse Ox 97 03/17/25 09:45 Oxygen Delivery Method Room Air 03/17/25 09:45 BMI result Body Mass Index 28.9 Tobacco/Smoking Status: Tobacco use Status Tobacco use date assessed 10/28/24 03/17/25 09:46 Patient Tobacco Use Status Never used Tobacco 03/17/25 09:46 e-Cigarette/Vaping Use Never Used 03/17/25 09:46 PHQ-9: PHQ-9 Score PHQ-9: Total score 0 03/17/25 10:15 Depression Screening Interpretation: Negative Thrive Assessment: Date of Thrive Assessment Date Thrive assessed 03/17/25 03/17/25 09:46 Currently or been in a relationship where the following occur: No concerns reported Coding Level of Care Code Est Pt Level 3 (88122) Complex EM visit [place] G2211 Diagnoses Lipid disorder E78.9 Atherosclerotic cardiovascular disease I25.10 PVC (premature ventricular contraction) I49.3 Additional Codes PHQ-9 - 08272 - PHQ-9 Billing: Yes ([id number]) Assessment & Plan Assessment & Plan (1) Lipid disorder: Code(s): E78.9 - Disorder of lipoprotein metabolism, unspecified Category: Medical (2) Atherosclerotic cardiovascular disease: Code(s): I25.10 - Atherosclerotic heart disease of [place] coronary artery without angina pectoris Category: Medical (3) PVC (premature ventricular contraction): Code(s): I49.3 - Ventricular premature depolarization Category: Medical Plan Chief Complaint Annual physical exam. History of Present Illness The patient is an 84-year-old male presenting for a routine check-up and medication review. Medications Management: - The patient reported being under the care of Dr. Collado, a trust and estates paralegal. - He is taking metoprolol and rosuvastatin as prescribed by Dr. Collado. Routine Health Assessment: - The patient mentioned seeing a senior product designer in [place] and has an upcoming appointment with Dr. Zamora. - An appointment with a trust and estates paralegal is scheduled for March 19. - The patient has stopped swimming as advised following a previous procedure. - He currently walks two miles daily for exercise. - No swelling was reported. Medical History: - Cardiovascular disease under the care of a trust and estates paralegal. - Dermatological concerns managed by a senior product designer. Medications: - Metoprolol for cardiovascular health. - Rosuvastatin for the management of cholesterol levels.. Problem List - Cardiovascular disease - Hyperlipidemia Patient Instructions - Continue taking prescribed medications as directed. - Attend the scheduled cardiology appointment on March 19. - Complete lab tests before the cardiology visit, if possible. - Maintain regular physical activity by walking. - Monitor ears for any issues and follow up in three months for an ear exam. - Follow up with the senior product designer appointment as scheduled. Orders: Orders Complete Blood Count Auto Diff Today E78.9 - Disorder of lipoprotein metabolism, unspecified, I25.10 - Atherosclerotic heart disease of [place] coronary artery without angina pectoris, I49.3 - Ventricular premature depolarization Comprehensive [place]. Panel Fast Today E78.9 - Disorder of lipoprotein metabolism, unspecified, I25.10 - Atherosclerotic heart disease of [place] coronary artery without angina pectoris, I49.3 - Ventricular premature depolarization Lipid Panel Today E78.9 - Disorder of lipoprotein metabolism, unspecified, I25.10 - Atherosclerotic heart disease of [place] coronary artery without angina pectoris, I49.3 - Ventricular premature depolarization Medications: Discontinued clotrimazole-betamethasone 1-0.05 % Discontinued Reason: Doctor's Order 1 appl topical ONCE 30 days 45 grams 2RF
--- OUTSIDE RECORDS SUMMARY | 2025-03-17 10:50 | XMS_ITS | Patient Health Record ---
Author Organization [facility] Address [address] [place] [address] Care Team Providers Care Senior Java Software Developer Name Role Phone Jules FRANCIS, [facility] Primary Care Provider Temo Wei Unavailable [phone] Reason For Referral No Information Medications Medication SIG (Take, Route, Frequency, Duration) Notes Start Date End Date Status Rosuvastatin Calcium 40 MG Orally Active Night Splint AFO - L1930 as directed 11/09/2017 Active Metoprolol Succinate Active Aspir-81 Active Social History Tobacco Use: Social History Observation Description Date Details (start date - stop date) Former Smoker NA - NA Tobacco Use/Smoking Question Answer Notes Are you a: former smoker When did you start smoking? 2 When did you stop smoking? 1967 How long has it been since you last smoked? < 1 month Additional Findings: Tobacco Non-User Current no n-smoker Alcohol Screen Question Answer Notes Did you have a drink containing alcohol in the p ast year? No Points 0 Interpretation Negative Tobacco use other than smoking: Question Answer Notes Are you an other tobacco user? No Plan Of Treatment Pending Test Test Name Order Date X ray : Foot, left 2V 11/09/2017 Insurance Providers Payer Name Payer Address Payer Phone Subscriber Number Group Number Insured Name Patient Relationship to Insured Coverage Start Date Coverage End Date Medicare National [facility] [address] [place] [address] [id number] Jaime Lopez Self - patient is the insured [employer] [address] [place] [address] [phone] [id number] Jaime Lopez Self - patient is the insured Medical (General) History Medical History History ICD Code Chicken pox Heart disease Measles Surgical History Surgery Date(Month/Year) hemorrhoidectomy 1972 stent insertion 06/12/1966
== END 2025-03-17 10:49 | disposition home or self-care (01) ==
LOC: HO.HMCC 09:44
PROVIDERS: PCP Internal Medicine; Visit Provider Internal Medicine
DX: E78.9 Disorder of lipoprotein metabolism, unspecified (principal); I25.10 Atherosclerotic heart disease of native coronary artery without angina pectoris; I49.3 Ventricular premature depolarization

== ENCOUNTER → 2025-03-17 09:43 | Outpatient (BNVA) | payer MEDICARE, SELFPAY | PROVIDERS: PCP Internal Medicine; Visit Provider Internal Medicine | DX: Z13.31 Encounter for screening for depression (principal); E78.9 Disorder of lipoprotein metabolism, unspecified; I25.10 Atherosclerotic heart disease of native coronary artery without angina pectoris; I49.3 Ventricular premature depolarization | CPT/HCPCS: 96127; 99212 ==

== ENCOUNTER 2025-03-18 06:00 | Outpatient (REF) | payer MEDICARE, SELFPAY ==
[2025-03-18 06:13] LABS: MANUAL DIFF FLAG NO
[2025-03-18 07:46] LABS: Hematocrit 42.7 % (42.0-52.0); Hemoglobin 14.2 g/dl (14.0-18.0); Imm Gran Abs Auto 0.02 X10*3/uL (0.00-0.03); Imm Gran Pct Auto 0.3 % (0.0-0.4); Lymphocytes Absolute Auto 2.0 X10*3/uL (1.2-4.9); Mean Corpuscular HGB Conc 33.3 g/dl (31.0-36.0); Mean Corpuscular Hemoglobin 31.5 pg (27.0-33.0); Mean Corpuscular Volume 94.7 fL (80.0-98.0); NRBC Abs Auto 0.000 X10*3/uL (0.0-0.012); NRBC Pct Auto 0.0 /100WBC (0.0-0.2); Platelet Count 142 X10*3/uL (160-400); Red Blood Count 4.51 X10*6/uL (4.60-5.80); White Blood Count 7.4 X10*3/uL (4.8-10.8)
[2025-03-18 08:20] LABS: Alanine Aminotransferase 30 U/L (0-40); Albumin Level 3.8 g/dL (3.5-5.0); Alkaline Phosphatase 44 U/L (39-117); Anion Gap 10 (12-20); Aspartate Amino Transferase 34 U/L (5-37); Blood Urea Nitrogen 20 mg/dL (9-16); Calcium 8.8 mg/dL (8.4-10.2); Carbon Dioxide 26 mmol/L (22-29); Chloride 111 mmol/L (96-108); Cholesterol 145 mg/dL (<200); Estimated Glomerular Filt Rate > 60; HDL Cholesterol 50 mg/dL (>40); Potassium 4.7 mmol/L (3.3-5.1); Sodium 142 mmol/L (135-145); Total Protein 6.3 g/dL (6.5-8.0); Triglycerides 110 mg/dL (<150)
== END 2025-03-18 06:01 | disposition home or self-care (01) ==
LOC: HO.LAB 06:00
PROVIDERS: PCP Internal Medicine; Visit Provider Internal Medicine
DX: I25.10 Atherosclerotic heart disease of native coronary artery without angina pectoris (principal); E78.9 Disorder of lipoprotein metabolism, unspecified; I49.3 Ventricular premature depolarization
CPT/HCPCS: 36415; 80053; 80061; 85025

== ENCOUNTER 2025-06-17 09:57 | Outpatient (AMB) | payer MEDICARE, SELFPAY ==
[2025-06-17 10:01] VITALS: BP 108/72; PULSE 65; O2SAT 97
--- NOTE | 2025-06-17 10:01 | A.OFFPC_ITS ---
Vital Signs 06/17/25 10:01 Weight 214 lb BP 108/72 Blood Pressure Location Lt brachial Position Sitting Pulse 65 Pulse Source Pulse Oximeter Pulse Oximetry (%) 97 Intake Visit Reasons: 3m follow up Allergies metoprolol Allergy (Unknown, Uncoded 03/17/25 09:45) on high dose feels tired Medication List - Last Reconciled 06/17/25 by Jb Vicente MD aspirin 81 mg PO DAILY metoprolol succinate ER 25 mg PO BEDTIME rosuvastatin 40 mg PO DAILY Tobacco use date assessed: 10/28/24 Fall risk assessment: No Falls in past year Last assessed Fall Risk: 06/17/25 Dental Screening Dental Screen Date: 10/28/24 HPI HPI Comments History of Present Illness Details History of Present Illness The patient is 85-year-old male presenting for a routine follow-up . PVCs - The patient is taking metoprolol , as prescribed by Dr. Galeas. - He is tolerating the medication and de nies any dizziness or lightheadedness. Lipid disorder : taking statin and tolerating it Preventative Care: - The patient has received both influenz a and COVID-19 vaccinations. Diagnostic Results: - Labs (February): Kidney functions are fi ne and liver enzymes are stable. [facility] Medical History PVC (premature ventricular contraction) Atherosclerotic cardiovascular disease Swelling Fall Excessive cerumen in both ear canals Benign prostatic hyperplasia Lipid disorder Moderate aortic valve regurgitation Coronary artery disease Surgical History History of surgery History of hemorrhoidectomy Family History Father Leukemia Depression Mother Dementia Maternal Grandfather No problems noted. Maternal Grandmother No problems noted. Paternal Grandfather No problems noted. Paternal Grandmother No problems noted. Brother No problems noted. Son No problems noted. Son No problems noted. Son No problems noted. Daughter No problems noted. Other Mental health disorder Social History Housing: House Alcohol intake: never Patient Tobacco Use Status: Never used Tobacco e-Cigarette/Vaping Use: Never Used service: Yes Current occupational status: retired Cognitive needs: No Hearing needs: No Vision needs: Yes Questionnaire Thrive Questionnaire Date Thrive assessed: 10/21/24 I am a: Patient What is your living situation today?: I have a steady place to live Within the past 12 months, did the food you bought not last and you didn't have the money to get more?: Never true Within the past 12 months, did you worry whether your food would run out before you got money to buy more?: Never true Do you have trouble paying for medicines?: No Do you have trouble getting transportation to medical appointments?: No Do you have trouble paying your heating and electricity bill?: No Do you have trouble taking care of your child, family member or friend?: No Do you have trouble with day-to-day activities such as bathing, preparing meals, shopping, managing finances, etc.?: No Are you currently unemployed and looking for a job?: No Are you interested in more education?: No Please select the resources that you would like help with: None Currently or been in a relationship where the following occur: No concerns reported THRIVE Score: 0 AUDIT C Alcohol Use Questionnaire (AUDIT-C) 3. How often do you have six or more drinks on one occasion?: Never Total Score: 0 COSME-7 AMB Questionnaire COSME-7 Date COSME - 7 assessed: 10/28/24 Source: Developed by Drs. Jared Brown, Genia Gibson, Spenser Hernandez and colleagues, with an educational genny from [employer]. Review of Systems Narrative Review of Systems - Constitutional: Denies dizziness and lightheadedness. - Neurological: No headaches no dizziness - Ear nose throat: No sore throat no hearing difficulty no ear pain - Cardiovascular: No syncope, no chest pain, no palpitations - Gastrointestinal: No nausea vomiting or diarrhea Physical exam (Primary Care) Vital Signs: Last Vital Signs Pulse 65 06/17/25 10:01 BP 108/72 06/17/25 10:01 Pulse Ox 97 06/17/25 10:01 Tobacco/Smoking Status: Tobacco use Status Tobacco use date assessed 10/28/24 06/17/25 10:01 Patient Tobacco Use Status Never used Tobacco 06/17/25 10:01 e-Cigarette/Vaping Use Never Used 06/17/25 10:01 Thrive Assessment: Date of Thrive Assessment Date Thrive assessed 10/21/24 06/17/25 10:01 Currently or been in a relationship where the following occur: No concerns reported Narrative Physical Exam General: No acute distress HEENT: ears no wax today Neck: Supple Respiratory system: Able to talk in full sentences, no audible wheeze Cardiovascular: S1-S2 regular in rate and rhythm Gastrointestinal: No pain Extremities: No new findings PRODUCT CONTROL AND LOGISTICS ANALYST: Alert awake oriented x3 motor intact Skin: Normal turgor Coding Level of Care Code Est Pt Level 3 (27188) Diagnoses Lipid disorder E78.9 Atherosclerotic cardiovascular disease I25.10 PVC (premature ventricular contraction) I49.3 Assessment & Plan Assessment & Plan (1) Lipid disorder: Code(s): E78.9 - Disorder of lipoprotein metabolism, unspecified Category: Medical (2) Atherosclerotic cardiovascular disease: Code(s): I25.10 - Atherosclerotic heart disease of [place] coronary artery without angina pectoris Category: Medical (3) PVC (premature ventricular contraction): Code(s): I49.3 - Ventricular premature depolarization Category: Medical Plan - Lipid disorder - PVCs - Preventative care: Influenza and COVID-19 vaccination Plan - The patient is tolerating metoprolol well, for PVCs with a blood pressure of 108/72 mmHg and no symptoms of hypotension; he will continue the current regimen. - continue rosuvastatin - Recent labs from February show stable kidney and liver function. - Recommended follow-up in six months for continued health monitoring.
--- OUTSIDE RECORDS SUMMARY | 2025-06-17 18:40 | XMS_ITS | Patient Health Record ---
Author Organization [facility] Address [address] [place] [address] Care Team Providers Care Clinical Genetics Laboratory Chief Name Role Phone Jules FRANCIS, [facility] Primary [facility] Provider Temo Valentino [phone] Reason For Referral No Information Medications Medication [...] Start Date Coverage End Date Medicare National [facility] [address] [place] [address] [id number] Jaime Lopez Self - patient is the insured [employer] [facility] [address] [place] [address] [phone] [id number] Jaime Lopez Self - patient is the insured Medical (General) History Medical History History ICD Code Chicken pox Heart disease Measles Surgical History Surgery Date(Month/Year) hemorrhoidectomy 1972 stent insertion 06/12/1966
== END 2025-06-17 10:44 | disposition home or self-care (01) ==
LOC: HO.HMCC 09:58
PROVIDERS: PCP Internal Medicine; Visit Provider Internal Medicine
DX: E78.9 Disorder of lipoprotein metabolism, unspecified (principal); I25.10 Atherosclerotic heart disease of native coronary artery without angina pectoris; I49.3 Ventricular premature depolarization

== ENCOUNTER → 2025-06-17 09:57 | Outpatient (BNVA) | payer MEDICARE, SELFPAY | PROVIDERS: PCP Internal Medicine; Visit Provider Internal Medicine | DX: E78.9 Disorder of lipoprotein metabolism, unspecified (principal); I25.10 Atherosclerotic heart disease of native coronary artery without angina pectoris; I49.3 Ventricular premature depolarization | CPT/HCPCS: 99212 ==

== ENCOUNTER 2025-06-19 13:41 | Outpatient (AMB) | payer MEDICARE, SELFPAY ==
[2025-06-19 13:45] VITALS: BP 120/70; PULSE 43; BMI 29.0
--- NOTE | 2025-06-19 13:45 | MHC.OFFVIS ---
Vital Signs 06/19/25 13:45 Height 6 ft Weight 213 lb 13.574 oz BMI 29.0 BP 120/70 Blood Pressure Location Lt brachial Position Sitting Pulse 43 L Intake Visit Reasons: 1 yr f/up Intake Note: 1 year follow-up with ekg feeling good [employer] Required: No Allergies metoprolol Allergy (Unknown, Uncoded 03/17/25 09:45) on high dose feels tired Medication List - Last Reconciled 06/19/25 by Alexis Rivera NP aspirin 81 mg PO DAILY metoprolol succinate ER 25 mg PO BEDTIME rosuvastatin 40 mg PO DAILY HPI Comments Details: This is an 85-year-old male patient coming in for a follow-up visit. Patient with a history of coronary artery disease status post prior PCI to proximal ramus in 2005, and PVCs. Patient underwent a myocardial perfusion study in 2022 that showed normal perfusion. Today, patient is reporting feeling well overall without any cardiac symptoms of exertional chest pain, shortness of breath, palpitations, dizziness, orthopnea, PND, leg edema, presyncope or syncope. Patient states that he is active walking almost 2 miles every day and is continuing to swim at [facility]. Patient is reporting compliance with all his medications. [facility] Medical History PVC (premature ventricular contraction) Atherosclerotic cardiovascular disease Swelling Fall Excessive cerumen in both ear canals Benign prostatic hyperplasia Lipid disorder Moderate aortic valve regurgitation Coronary artery disease Surgical History History of surgery History of hemorrhoidectomy Family History Father Leukemia Depression Mother Dementia Maternal Grandfather No problems noted. Maternal Grandmother No problems noted. Paternal Grandfather No problems noted. Paternal Grandmother No problems noted. Brother No problems noted. Son No problems noted. Son No problems noted. Son No problems noted. Daughter No problems noted. Other Mental health disorder Social History Housing: House Alcohol intake: never Patient Tobacco Use Status: Never used Tobacco e-Cigarette/Vaping Use: Never Used service: Yes Current occupational status: retired Cognitive needs: No Hearing needs: No Vision needs: Yes Review of Systems Const Denies chills, Denies fatigue, Denies fever(s), Denies frequent falls, Denies weakness, Denies weight gain and Denies weight loss ENT Denies dizziness Card Denies chest pain, Denies leg edema, Denies lightheadedness, Denies palpitations, Denies dyspnea, Denies dyspnea on exertion, Denies orthopnea and Denies other (loss of consciousness) Resp Denies cough, Denies dyspnea and Denies dyspnea on exertion GI Denies hematochezia and Denies change in stool character Musc Denies abnormal gait, Denies muscle weakness, Denies numbness, Denies radiating pain into limb and Denies tingling Neuro Denies abnormal gait, Denies dizziness, Denies frequent falls, Denies numbness, Denies tingling and Denies weakness Endo Denies fatigue and Denies palpitations Physical Exam Vital Signs: Last Vital Signs Pulse 43 L 06/19/25 13:45 BP 120/70 06/19/25 13:45 BMI result Body Mass Index 29.0 Const General: cooperative, healthy appearing, comfortable and no acute distress Orientation/consciousness: patient oriented x3 HEENT Head: Yes normal to inspection Neck Neck: Yes normal visual inspection, Yes trachea midline and Yes supple Chest Chest palpation & inspection: normal inspection of the chest Resp Effort & Inspection: normal respiratory effort Auscultation: clear to auscultation bilaterally, no crackles, no rales, no rhonchi and no wheezes Cardio Jugular venous distension: no JVD Palpation: normal PMI Rate: bradycardic Rhythm: regular rhythm Heart sounds: S1 normal heart sound present, S2 normal heart sound present, no click, no gallops, no murmurs and no rubs Peripheral pulses: Peripheral pulses 2+ throughout GI Inspection: Yes normal to inspection Palpation (GI): Soft to palpation Auscultation: normal bowel sounds Skin General skin exam: no rashes or lesions noted Neuro General: patient oriented x3 Extrem General: Yes normal to inspection, No no pedal edema and No calf tenderness Psych Appearance: grossly normal Mental Status: mental status grossly normal Speech and movement: Normal speech and movement present Office Procedures EKG Details: EKG today showed sinus bradycardia with PACs, rate 43 beats per minute, nonspecific ST-T waves, [place], [place] [id number], Complete Assessment & Plan Assessment & Plan (1) Coronary artery disease: Code(s): I25.10 - Atherosclerotic heart disease of [place] coronary artery without angina pectoris Category: Medical Qualifiers: Coronary Disease-Associated Artery/Lesion type: [place] artery [place] vs. transplanted heart: [place] heart Associated angina: without angina Qualified Code(s): I25.10 - Atherosclerotic heart disease of [place] coronary artery without angina pectoris Plan: History of coronary artery disease. NSTEMI in 2005 after which patient had a PCI placement to proximal ramus. Since then patient has undergone a myocardial perfusion study in 2022 that showed normal perfusion. Clinically stable and without any cardiac symptoms. Continue lifelong aspirin therapy. No reported signs of bleeding. Continue on high-dose statin therapy with an LDL goal less than 70. (2) PVC (premature ventricular contraction): Code(s): I49.3 - Ventricular premature depolarization Category: Medical Plan: 02/13/2022-Holter study at that time had shown underlying sinus rhythm with occasional PACs and PVCs. Previous to this patient had a 15% burden of PVCs. Continue metoprolol therapy. Patient's heart rate on the EKG was as low as 43 however after talking throughout the visit, the tech writer rechecked his pulse by auscultating at the apical ranging between 53-56 beats per minute. On the Holter, patient did have a heart rate as low as 31. In 2022 when patient underwent the stress myocardial perfusion study he adequate chronotropic response. (3) Moderate aortic valve regurgitation: Code(s): I35.1 - Nonrheumatic aortic (valve) insufficiency Category: Medical Plan: 02/13/2022-echo study showed normal LV systolic function with an ejection fraction between 55-60%, with impaired relaxation filling pattern, and mild aortic regurgitation, and mildly dilated left atrium. Clinically stable and euvolemic. Advised to stay active, heart healthy diet, med compliance, and management of vascular risk factors. Follow up in 1 year, sooner if needed. In the interim, patient will call the office with any concerns or change in symptoms. This note was generated using voice recognition software. While every effort has been made to ensure accuracy and proper automobile brake bonder, there may be occasional errors that could affect the content or meaning of the described symptoms. Orders: Orders AMB EKG-In Office Today I25.10 - Atherosclerotic heart disease of [place] coronary artery without angina pectoris Coding Level of Care Code Est Pt Level 4 (66243) Complex visit Add On G2211 Diagnoses Coronary artery disease involving [place] coronary artery of [place] heart without angina pectoris I25.10 Coronary Disease-Associated Artery/Lesion type: [place] artery [place] vs. transplanted heart: [place] heart Associated angina: without angina PVC (premature ventricular contraction) I49.3 Moderate aortic valve regurgitation I35.1 CPT Codes EKG - CPT: [id number], Complete ([id number]) Time Spent (min) 31 Comment Time spent in reviewing the chart, test results, assessment, counseling and documentation.
--- OUTSIDE RECORDS SUMMARY | 2025-06-19 14:11 | XMS_ITS | Patient Health Record ---
[facility] Organization [facility] Address [address] [place] [address] Care Team Providers Care Early Childhood Associate Teacher Name Role Phone Jules FRANCIS, [facility] Temo Valentino [phone] Reason For Referral No Information Medications Medication [...] Start Date Coverage End Date Medicare [facility] [address] [place] [address] [id number] Jaime Lopez Self - patient is the insured [employer] [facility] [address] [place] [address] [id number] Jaime Lopez Self - patient is the insured Medical (General) History Medical History History ICD Code Chicken pox Heart disease Measles Surgical History Surgery Date(Month/Year) hemorrhoidectomy 1972 stent insertion 06/12/1966
== END 2025-06-19 14:15 | disposition home or self-care (01) ==
LOC: HO.HCS 13:42
PROVIDERS: PCP Internal Medicine
DX: I25.10 Atherosclerotic heart disease of native coronary artery without angina pectoris (principal); I49.3 Ventricular premature depolarization; I35.1 Nonrheumatic aortic (valve) insufficiency
CPT/HCPCS: 93010; 99214; G2211

== ENCOUNTER → 2025-06-19 13:41 | Outpatient (BNVA) | payer MEDICARE, SELFPAY | PROVIDERS: PCP Internal Medicine | DX: I49.3 Ventricular premature depolarization (principal); I35.1 Nonrheumatic aortic (valve) insufficiency; I25.10 Atherosclerotic heart disease of native coronary artery without angina pectoris; I25.83 Coronary atherosclerosis due to lipid rich plaque; E78.5 Hyperlipidemia, unspecified; Z79.82 Long term (current) use of aspirin | CPT/HCPCS: 93005; 99212 ==